=== PATIENT | female | born 1970 | race Caucasian/White ===

== ENCOUNTER → 2018-05-08 | Outpatient (CLI) | payer OTHER ==
--- NOTE | 2018-05-08 15:50 | XR ---
Right hip HISTORY: Right hip pain 2 views of the right hip No comparisons Bone mineralization, joint spaces and alignment are maintained. No fracture or dislocation. IMPRESSION: Normal right hip.
--- NOTE | 2018-05-08 15:52 | XR ---
Lumbosacral spine HISTORY: Pain 5 views of the lumbosacral spine Surgical clips are present in the right upper quadrant. No spondylolysis or spondylolisthesis. Lumbar vertebral bodies show preserved height and bone mineralization. There is multilevel spondylosis. Los s of disc height L5-S1. Sclerosis present in the posterior lower lumbar spine. IMPRESSION: Facet arthropathy. Degenerative disc disease.
== END | disposition home or self-care (01) ==
LOC: RADXRMAIN 12:52
PROVIDERS: ATTEND Family Medicine
DX: M51.36 Other intervertebral disc degeneration, lumbar region (principal); M46.96 Unspecified inflammatory spondylopathy, lumbar region; M25.551 Pain in right hip
CPT/HCPCS: 72110; 73502

== ENCOUNTER → 2020-01-22 | Outpatient (CLI) | payer BC, OTHER ==
[2020-01-22 15:09] VITALS: BP 137/84; PULSE 93; TEMP 98; BMI 47.9
--- NOTE | 2020-01-22 15:34 | P.HPBAR ---
Bariatric H&P - History & Physicial H&P Date: 01/22/20 History & Physicial: Visit/CC: initial visit Patient initial contact: Initial weight: 244.1 kg Initial weight in pounds: 538.15 Height: 5 ft 1 in Initial BMI: 101.7 Last weight: Current weight: 115.212 kg Current weight in pounds: 254.00 Current BMI: 47.9 [place] body weight (based on NIH guidelines): 47.627 kg Excess body weight loss: 65.6% The patient is a 49 year-old F who presents for Bariatric Assessment. DATE OF SERVICE: 01/22/2020 REASON FOR CONSULTATION: Initial bariatric evaluation. HISTORY OF PRESENT ILLNESS: Leonie Wallace is a 49-year-old female who comes with lifelong morbid obesity. She is looking into the sleeve gastrectomy. She had C- section and hysterectomy. She reports heartburn. She denies prior upper endoscopy. No reports of stomach or esophageal cancer in her family. She has diabetes and takes oral medications in the last 6 months. She reports occassional dysphagia. She has family history of obesity. No reports of DVTS. She denies easy bruising or bleeding. She has not had a colonoscopy. She denies smoking and has no past tobacco use. No reports of Crohns disease or ulcerative colitis. Her highest weight is 265 pounds. She has tried weight watchers, Adipex with weight loss and lost 90 pounds all with weight regain. She presents in consultation for weight loss options. At height of 5 feet 1 inches, her ideal body weight is 131 pounds. Her highest weight is 265 pounds, BMI 49.5. She comes in 253 pounds. Her body mass index is 48.0. She is 122 pounds overweight. PAST MEDICAL HISTORY: 1. Morbid obesity due to excess calories 2. Body mass index of 49.5, initial 3. Diabetes type II 4. Hypertensive heart disease 5. Anxiety disorder 6. Psychosis 7. Depressive disorder 8. PTSD PAST SURGICAL HISTORY: 1. section 2. Cholecystectomy 3. Hysterectomy 4. Tonsillectomy 5. Right shoulder surgery HOME MEDICATIONS: Home Medications Medication Instructions Recorded Confirmed Brexpiprazole [Rexulti] 2.5 mg PO DAILY 01/22/20 01/28/20 Celecoxib [CeleBREX] 200 mg PO DAILY 01/22/20 01/28/20 Chlorthalidone 25 mg PO DAILY 01/22/20 01/28/20 Pioglitazone [Actos] 30 mg PO DAILY 01/22/20 01/28/20 Tolterodine Tartrate [Tolterodine 2 mg PO DAILY 01/22/20 01/28/20 Tartrate ER] clonazePAM [KlonoPIN] 0.5 mg PO TID PRN 01/22/20 01/28/20 glipiZIDE [Glucotrol] 10 mg PO BID 01/22/20 01/28/20 lamoTRIgine [LaMICtal] 100 mg PO DAILY 01/22/20 01/28/20 lamoTRIgine [LaMICtal] 200 mg PO HS 01/22/20 01/28/20 traZODone HCL [Desyrel] 100 mg PO DAILY@199901/22/20 01/28/20 Previous Rx's Medication Instructions Recorded Citalopram Hydrobromide [CeleXA] 40 mg PO DAILY #15 tab 04/24/15 ALLERGIES: Allergies Allergy/AdvReac Type Severity Reaction Status Date / Time cephalexin monohydrate Allergy Rapid Verified 01/30/20 07:54 [From Keflex] Heart Rate sulfamethoxazole Allergy Rapid Verified 01/30/20 07:54 [From Bactrim] Heart Rate trimethoprim [From Bactrim] Allergy Rapid Verified 01/30/20 07:54 Heart Rate latex AdvReac Rash/Hives Verified 01/30/20 07:54 some tapes AdvReac Rash/Hives Uncoded 01/30/20 07:54 SOCIAL HISTORY: Past tobacco use. FAMILY HISTORY: No family history of ulcerative colitis disease or Crohn's disease. Family history of morbid obesity. No lupus in the family. No reports of stomach or esophageal cancer. REVIEW OF ORGAN SYSTEMS: CONSTITUTIONAL: At height of 5 feet 1 inches, her ideal body weight is 131 pounds. Her highest weight is 265 pounds, BMI 49.5. She comes in 253 pounds. Her body mass index is 48.0. She is 122 pounds overweight. HEENT: Denies any active troubles with vision or hearing. ENDOCRINE: Has diabetes. No hypothyroidism. CARDIOVASCULAR: No past reports of palpitations or heart attacks or chest pain. Has hypertension. RESPIRATORY: Has daytime somnolence. Denies asthma. GASTROINTESTINAL: Denies any bright red blood per rectum. No diarrhea. No constipation. MUSCULOSKELETAL: Has lower back pain and joint pain. Has osteoarthritis of the knees. NEURO: No headaches. No seizure disorders. PSYCH: Has depression. No suicidal ideation. RHEUMATOLOGIC: No lupus. No rheumatoid arthritis. HEMATOLOGIC: Denies any abnormal bleeding or bruising. No personal history of DVTs. SKIN: No rash. No skin cancer. PHYSICAL EXAM: VITAL SIGNS: Height 5 foot 1 inches, weight 253 pounds. BMI 48.0 Vital Signs Temp 98 F 01/22/20 14:56 Pulse 93 01/22/20 14:56 Resp BP 137/84 01/22/20 14:56 Pulse Ox GENERAL: Well-developed in no acute distress. HEENT: No scleral icterus. Extraocular movements grossly intact. Hears conversational speech. No nasal drainage. NECK: Supple without lymphadenopathy. CHEST: Nonlabored respirations with equal bilateral excursions. CARDIOVASCULAR: Regular rate and regular rhythm. Distal 2+ pulses. ABDOMEN: Obese, soft, nontender, nondistended. MUSCULOSKELETAL: No clubbing, cyanosis. NEURO: No focal or lateralizing signs. Cranial nerves 2 through 12 grossly within normal limits. PSYCH: Appropriate affect. Alert and oriented to person, place and time. SKIN: Good skin turgor. Well perfused. ASSESSMENT: 1. Morbid obesity due to excess calories 2. Body mass index of 49.5, initial 3. Diabetes type II 4. Hypertensive heart disease 5. Anxiety disorder 6. Psychosis 7. Depressive disorder 8. PTSD PLAN: 1. Surgical options including a band, gastric bypass, sleeve gastrectomy were described in detail. Alternatives such as gastric balloon including duodenal switch were described. She is looking into the sleeve gastrectomy 2. The [place] bariatric surgical collaborative data and outcomes calculator were described with surgical options. 3. Recommend a bariatric metabolic panel to evaluate for micro- including macronutrient deficiencies. 4. For history of daytime somnolence, recommend evaluation and treatment for sleep apnea. 5. Dietary surveillance and counseling was reviewed. Increased protein intake over 65 grams daily advised. 6. Will need cardiac risk assessment. 7. Recommend medical risk assessment. 8. Psych assessment per insurance guidelines. 9. Recommend upper endoscopy. 10. Recommend 12-lead EKG. 11. Recommend esophagram 12. Recommend colonoscopy. Thank you for this consultation. Laboratory Last Values WBC 8.6 k/uL (3.8-10.6) 01/22/20 16:14 RBC 4.79 m/uL (3.80-5.40) 01/22/20 16:14 Hgb 13.7 gm/dL (11.4-16.0) 01/22/20 16:14 Hct 42.3 % (34.0-46.0) 01/22/20 16:14 MCV 88.4 fL (80.0-100.0) 01/22/20 16:14 MCH 28.6 pg (25.0-35.0) 01/22/20 16:14 MCHC 32.4 g/dL (31.0-37.0) 01/22/20 16:14 RDW 12.9 % (11.5-15.5) 01/22/20 16:14 Plt Count 282 k/uL (150-450) 01/22/20 16:14 PT 10.5 sec (9.9-11.9) 01/22/20 16:14 INR 0.98 (0.90-1.11) 01/22/20 16:14 APTT 26.6 sec (24.7-29.9) 01/22/20 16:14 Sodium 139 mmol/L (135-145) 01/22/20 16:14 Potassium 4.0 mmol/L (3.5-5.5) 01/22/20 16:14 Chloride 102 mmol/L (96-109) 01/22/20 16:14 Carbon Dioxide 26.5 mmol/L (21.6-31.8) 01/22/20 16:14 Anion Gap 10.50 mmol/L (4.00-12.00) 01/22/20 16:14 BUN 17.0 mg/dL (9.0-27.0) 01/22/20 16:14 Creatinine 1.0 mg/dL (0.6-1.5) 01/22/20 16:14 Est GFR (CKD-EPI)AfAm 75.5 (60.0-200.0) 01/22/20 16:14 Est GFR (CKD-EPI)NonAf 65.2 (60.0-200.0) 01/22/20 16:14 BUN/Creatinine Ratio 17.00 Ratio (12.00-20.00) 01/22/20 16:14 Glucose 106 mg/dL (70-110) 01/22/20 16:[address] Glu mg/dL 226 01/22/20 16:14 Hemoglobin A1c 9.5 % (4.0-6.0) H 01/22/20 16:14 Calcium 9.7 mg/dL (8.7-10.3) 01/22/20 16:14 Phosphorus 3.4 mg/dL (2.4-5.1) 01/22/20 16:14 Magnesium 1.8 mg/dL (1.5-2.4) 01/22/20 16:14 Iron 61 ug/dL (50-170) 01/22/20 16:14 TIBC 329 ug/dL (228-460) 01/22/20 16:14 % Saturation 18.54 (12.00-45.00) 01/22/20 16:14 Ferritin 291.2 ng/mL (10.0-291.0) H 01/22/20 16:14 Total Bilirubin 0.5 mg/dL (0.3-1.2) 01/22/20 16:14 AST 55 U/L (13-35) H 01/22/20 16:14 ALT 51 U/L (8-44) H 01/22/20 16:14 Alkaline Phosphatase 76 U/L (41-126) 01/22/20 16:14 Total Protein 7.0 g/dL (6.2-8.2) 01/22/20 16:14 Albumin 4.30 g/dL (3.80-4.90) 01/22/20 16:14 Globulin 2.7 g/dL (1.6-3.3) 01/22/20 16:14 Albumin/Globulin Ratio 1.59 g/dL (1.60-3.17) L 01/22/20 16:14 Prealbumin 21.0 mg/dL (18.0-42.0) 01/22/20 16:14 Triglycerides 284.0 mg/dL (0.0-149.0) H 01/22/20 16:14 Cholesterol 223 mg/dL (0-200) H 01/22/20 16:14 LDL Cholesterol, Calc 117.2 mg/dL (0.0-131.0) 01/22/20 16:14 VLDL Cholesterol, Calc 56.80 mg/dL (5.00-40.00) H 01/22/20 16:14 HDL Cholesterol 49.0 mg/dL (40.0-60.0) 01/22/20 16:14 Cholesterol/HDL Ratio 4.55 01/22/20 16:14 Vitamin A 51 ug/dL (38-106) 01/22/20 16:14 Vitamin B1 54 ug/L (38-122) 01/22/20 16:14 Vitamin B12 276.0 pg/mL (200.0-944.0) 01/22/20 16:14 Vitamin D 25-Hydroxy 19.7 ng/mL (30.0-100.0) L 01/22/20 16:14 Folate 11.2 ng/mL 01/22/20 16:14 TSH 2.020 uIU/mL (0.350-5.500) 01/22/20 16:14 PTH Intact 22.4 pg/mL (14.0-72.0) 01/22/20 16:14 Copper 1430 ug/L (810-1990) 01/22/20 16:14 Selenium 150 mcg/L (63-160) 01/22/20 16:14 Zinc 56 ug/dL (60-130) L 01/22/20 16:14 EKG EKG PERFORMED 01/22/20 16:14 Vitamin D is low ZInc is low Past Medical History Past Medical History: Diabetes Mellitus, GERD/Reflux, Hypertension, Sleep Apnea/CPAP/BIPAP History of Any Multi-Drug Resistant Organisms: None Reported Past Surgical History: Section, Cholecystectomy, Hysterectomy, Orthopedic Surgery, Tonsillectomy Additional Past Surgical History / Comment(s): right elbow lateral epicondylitis; right shoulder surgery Past Anesthesia/Blood Transfusion Reactions: No Reported Reaction Past Psychological History: Anxiety, Depression, PTSD Smoking Status: Never smoker Past Alcohol Use History: None Reported Additional Past Alcohol Use History / Comment(s): Patient is a lifelong nonsmoker. She denies any medical marijuana, marijuana, street drug use. She drinks alcohol on a rare basis. 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 Past Drug Use History: None Reported - Past Family History Mother Family Medical History: Congestive Heart Failure (CHF), Coronary Artery Disease (CAD), Hypertension, Rheumatoid Arthritis (RA) Additional Family Medical History / Comment(s): Mother is alive at age 70 with a history of diabetes, coronary artery disease status post stent placement, polymyalgia. Father Additional Family Medical History / Comment(s): Father is alive at age 71 with no major medical problems. Brother(s) Additional Family Medical History / Comment(s): Patient has a brother age 48 and a second brother age 40 with no major medical problems. Patient has 1 sister with no major medical problems. She has one son and one daughter with no major medical problems. Surgical - Exam Vital Signs Temp Pulse BP 98 F 93 137/84 01/22/20 14:56 01/22/20 14:56 01/22/20 14:56 Results - Labs 01/22/20 16:14 01/22/20 16:14 Bariatric Checklist Checklist: Plan: Checklist: EGD: 1. Hiatal hernia: 2. H. Pylori: HgbA1c: Vitamin D: Smoking: Never smoker Primary care physician referral: Dr Jacob Psychiatry clearance: Cardiology clearance: Sleep study: Diet journal: VTE risk score: VTE risk level: Rehab needs at discharge:
[2020-01-22 16:44] LABS: HCT 42.3 % (34.0-46.0); HGB 13.7 gm/dL (11.4-16.0); MCH 28.6 pg (25.0-35.0); MCHC 32.4 g/dL (31.0-37.0); MCV 88.4 fL (80.0-100.0); Platelet Count 282 k/uL (150-450); RBC 4.79 m/uL (3.80-5.40); RDW 12.9 % (11.5-15.5); WBC 8.6 k/uL (3.8-10.6)
[2020-01-23 00:47] LABS: Hemoglobin A1C 9.5 % (4.0-6.0)
[2020-01-23 01:48] LABS: INR 0.98 (0.90-1.11); Partial Thromboplastin Time 26.6 sec (24.7-29.9); Prothrombin Time 10.5 sec (9.9-11.9)
[2020-01-23 02:12] LABS: % Iron Saturation 18.54 (12.00-45.00); African American GFR (CKD) 75.5 (60.0-200.0); Albumin 4.3 g/dL (3.80-4.90); Albumin/Globulin Ratio 1.59 (1.60-3.17); Anion Gap 10.5 mmol/L (4.00-12.00); Calcium 9.7 mg/dL (8.7-10.3); Carbon Dioxide 26.5 mmol/L (21.6-31.8); Chol/HDL Ratio 4.55; Globulin 2.7 g/dL (1.6-3.3); LDL Cholesterol,Calculated 117.2 mg/dL (0.0-131.0); Magnesium 1.8 mg/dL (1.5-2.4); Non-African American GFR(CKD) 65.2 (60.0-200.0); Phosphorus 3.4 mg/dL (2.4-5.1); Total Bilirubin 0.5 mg/dL (0.3-1.2); VLDL Calculation 56.8 mg/dL (5.00-40.00)
[2020-01-23 02:20] LABS: Ferritin 291.2 ng/mL (10.0-291.0)
[2020-01-23 02:51] LABS: Folate, Serum 11.2 ng/mL
[2020-01-23 11:30] LABS: Zinc, Serum 56 ug/dL (60-130)
[2020-01-24 07:28] LABS: Vit B1(Thiamine) 54 ug/L (38-122)
[2020-01-24 07:33] LABS: Vitamin A 51 ug/dL (38-106)
[2020-01-29 19:17] LABS: Selenium 150 mcg/L (63-160)
== END | disposition home or self-care (01) ==
LOC: BARWHC3 14:38
PROVIDERS: ATTEND Surgery Plastic and Reconstructive Surgery
DX: E66.01 Morbid (severe) obesity due to excess calories (principal); E11.9 Type 2 diabetes mellitus without complications; I11.9 Hypertensive heart disease without heart failure; F29 Unspecified psychosis not due to a substance or known physiological condition; F41.8 Other specified anxiety disorders; F43.10 Post-traumatic stress disorder, unspecified; Z87.891 Personal history of nicotine dependence; Z68.42 Body mass index [BMI] 45.0-49.9, adult; Z79.1 Long term (current) use of non-steroidal anti-inflammatories (NSAID); Z79.899 Other long term (current) drug therapy; Z88.8 Allergy status to other drugs, medicaments and biological substances; Z91.040 Latex allergy status; Z88.1 Allergy status to other antibiotic agents; Z88.2 Allergy status to sulfonamides; E89.1 Postprocedural hypoinsulinemia; D50.8 Other iron deficiency anemias; K90.89 Other intestinal malabsorption; E55.9 Vitamin D deficiency, unspecified; K74.1 Hepatic sclerosis; N19 Unspecified kidney failure; K50.90 Crohn's disease, unspecified, without complications
CPT/HCPCS: 80053; 80061; 82306; 82525; 82607; 82728; 82746; 83036; 83540; 83550; 83735; 83970; 84100; 84134; 84255; 84425; 84443; 84590; 84630; 85027; 85610; 85730; 93005; 99211

== ENCOUNTER 2020-01-30 07:39 | Day surgery (SDC) | payer BC, OTHER ==
[2020-01-28 15:01] VITALS: BMI 47.9
[~2020-01-30 07:39] MED LIST: DEXAMETHASONE SOD PHOSPHATE 4 MG/ML 1 ML VIAL IV ONE; HYDROmorphone 0.5 MG/0.5 ML SYRINGE IVP PRN; LACTATED RINGERS 1,000 ML IV SCH; LIDOCAINE 1% (10MG/ML) FOR IV START INTRADERMA PRN; ONDANSETRON 4 MG/2 ML VIAL IVP ONE; SCOPOLAMINE 1.5MG/72HR PATCH TRANSDERM ONE
--- NOTE | 2020-01-30 07:59 | P.GSHP ---
History of Present Illness H&P Date: 01/30/20 CHIEF COMPLAINT: GERD and colon screen HISTORY OF PRESENT ILLNESS: The patient is a 49-year-old female who presents with gastroesophageal reflux disease and need for colon screen. Upper and lower endoscopy were offered for further evaluation and management. PAST MEDICAL HISTORY: Please see list. PAST SURGICAL HISTORY: Please see list. MEDICATIONS: Please see list. ALLERGIES: Please see list. SOCIAL HISTORY: No illicit drug use FAMILY HISTORY: No reports of Crohn disease or ulcerative colitis. REVIEW OF ORGAN SYSTEMS: CONSTITUTIONAL: No reports of fevers or chills. GI: Denies any blood in stools or constipation. PHYSICAL EXAM: VITAL SIGNS: Stable GENERAL: Well-developed pleasant in no acute distress. HEENT: No scleral icterus. Extraocular movements grossly intact. Moist buccal mucosa. NECK: Supple without lymphadenopathy. CHEST: Unlabored respirations. Equal bilateral excursions. CARDIOVASCULAR: Regular rate and rhythm. Distal 2+ pulses. ABDOMEN: Soft, nondistended. MUSCULOSKELETAL: No clubbing, cyanosis, or edema. ASSESSMENT: 1. Gastroesophageal reflux disease 2. Colon screen. PLAN: 1. Recommend proceeding with an upper and lower endoscopy Past Medical History Past Medical History: Diabetes Mellitus, GERD/Reflux, Hypertension, Sleep Apnea/CPAP/BIPAP Additional Past Medical History / Comment(s): NO CPAP USED History of Any Multi-Drug Resistant Organisms: None Reported Past Surgical History: Section, Cholecystectomy, Hysterectomy, Orthopedic Surgery, Tonsillectomy Additional Past Surgical History / Comment(s): right elbow lateral epicondylitis; right shoulder surgery Past Anesthesia/Blood Transfusion Reactions: No Reported Reaction Smoking Status: Never smoker - Past Family History Mother Family Medical History: Congestive Heart Failure (CHF), Coronary Artery Disease (CAD), Hypertension, Rheumatoid Arthritis (RA) Additional Family Medical History / Comment(s): Mother is alive at age 70 with a history of diabetes, coronary artery disease status post stent placement, polymyalgia. Father Family Medical History: No Reported History Additional Family Medical History / Comment(s): Father is alive at age 71 with no major medical problems. Brother(s) Family Medical History: No Reported History Additional Family Medical History / Comment(s): Patient has a brother age 48 and a second brother age 40 with no major medical problems. Patient has 1 sister with no major medical problems. She has one son and one daughter with no major medical problems. Medications and Allergies Home Medications Medication Instructions Recorded Confirmed Type Citalopram Hydrobromide [CeleXA] 40 mg PO DAILY #15 tab 04/24/15 01/28/20 Rx Brexpiprazole [Rexulti] 2.5 mg PO DAILY 01/22/20 01/28/20 History Celecoxib [CeleBREX] 200 mg PO DAILY 01/22/20 01/28/20 History Chlorthalidone 25 mg PO DAILY 01/22/20 01/28/20 History Pioglitazone [Actos] 30 mg PO DAILY 01/22/20 01/28/20 History Tolterodine Tartrate [Tolterodine 2 mg PO DAILY 01/22/20 01/28/20 History Tartrate ER] clonazePAM [KlonoPIN] 0.5 mg PO TID PRN 01/22/20 01/28/20 History glipiZIDE [Glucotrol] 10 mg PO BID 01/22/20 01/28/20 History lamoTRIgine [LaMICtal] 100 mg PO DAILY 01/22/20 01/28/20 History lamoTRIgine [LaMICtal] 200 mg PO HS 01/22/20 01/28/20 History traZODone HCL [Desyrel] 100 mg PO DAILY@2000 01/22/20 01/28/20 History Allergies Allergy/AdvReac Type Severity Reaction Status Date / Time cephalexin monohydrate Allergy Rapid Verified 01/30/20 07:54 [From Keflex] Heart Rate sulfamethoxazole Allergy Rapid Verified 01/30/20 07:54 [From Bactrim] Heart Rate trimethoprim [From Bactrim] Allergy Rapid Verified 01/30/20 07:54 Heart Rate latex AdvReac Rash/Hives Verified 01/30/20 07:54 some tapes AdvReac Rash/Hives Uncoded 01/30/20 07:54
[2020-01-30 08:15] LABS: Glucose,Whole Blood 183 mg/dL (75-99)
[2020-01-30] MEDS ORDERED: PROPOFOL 10 MG/ML 20 ML VIAL IV ONE (08:30)
[2020-01-30] MEDS ORDERED: LIDOCAINE 1% INJ 10MG/ML (20 ML MDV) ONE (08:30)
--- NOTE | 2020-01-30 08:41 | P.PCN ---
Date of Procedure: 01/30/20 Description of Procedure: PREOPERATIVE DIAGNOSIS: Gastroesophageal reflux disease. Morbid obesity. POSTOPERATIVE DIAGNOSIS: Morbid obesity. Gastritis. Gastroesophageal reflux disease. OPERATION: Esophagogastroduodenoscopy with biopsies along antrum. SURGEON: Jaja Ga MD ANESTHESIA: MAC. INDICATIONS: The patient is a 49-year-old female who presents with a history of reflux disease. Benefits and risks of the procedure were described. Informed consent was obtained. DESCRIPTION: The patient was brought into the endoscopy suite and laid in the left lateral decubitus position. An Olympus gastroscope was passed along the posterior oropharynx down to the distal esophagus where the squamocolumnar junction was encountered at 35 cm from the incisors. The stomach was entered and no bile reflux was found. Additional findings are listed below. Biopsies with cold forceps were obtained of the antrum. The first through third portion of the duodenum was examined and unremarkable. Retroflexion of the scope confirmed Hill grade 2 lower esophageal valve. The squamocolumnar junction demonstrated LA grade A erosive esophagitis. The stomach was desufflated. The patient tolerated the procedure well. FINDINGS: Squamocolumnar junction 35 cm from the incisors. Diaphragmatic hiatus at 35 cm. Hill grade 2 lower esophageal valve. LA grade A erosive esophagitis. No active duodenitis. Chronic gastritis RECOMMENDATIONS: Upper endoscopy as needed.
[2020-01-30 08:42] VITALS: TEMP 97.1
[2020-01-30 08:58] VITALS: PULSE 79; RESP 18
--- NOTE | 2020-01-30 09:06 | P.PCN ---
Date of Procedure: 01/30/20 Description of Procedure: PREOPERATIVE DIAGNOSIS: Colonoscopy screening, initial POSTOPERATIVE DIAGNOSIS: Colonoscopy screening, initial Diverticulosis, scattered. OPERATION: Colonoscopy to the cecum, ileocecal valve and appendiceal orifice. SURGEON: Jaja Ga MD. ANESTHESIA: MAC. INDICATIONS: The patient is a 49-year-old female who presents for her first colonoscopy screening. Benefits and risks were described and informed consent was obtained. DESCRIPTION OF PROCEDURE: The patient had undergone Suprep. She had been brought into the operating room and laid in the left lateral decubitus position. After adequate intravenous sedation, the rectum was examined with 2% lidocaine jelly. External hemorrhoids were encountered. The rectal tone was within normal limits. No lesions were palpated in the rectal vault. An Olympus colonoscope was advanced until the cecum, ileocecal valve and appendiceal orifice were clearly viewed. The prep was fair. No scattered diverticulosis was encountered. No colonic polyps were found. No evidence of focal colitis was found. Retroflexion of the scope demonstrated grade 2 internal hemorrhoids without active bleeding or inflammation. The colon was desufflated. The patient had tolerated the procedure well. Withdrawal time was over 6 minutes. FINDINGS: Aronchick preparation quality scale3 (1-5) Internal hemorrhoids, grade 2 External prolapsed hemorrhoids, grade 3 No arteriovenous malformations. No large adenomatous polyps. No focal colitis. RECOMMENDATIONS: Lower endoscopy in 5 years, 2024 Plan - Discharge Summary Discharge Rx Participant: No New Discharge Prescriptions: Continue Citalopram Hydrobromide [CeleXA] 40 mg PO DAILY #15 tab Tolterodine Tartrate [Tolterodine Tartrate ER] 2 mg PO DAILY Celecoxib [CeleBREX] 200 mg PO DAILY Pioglitazone [Actos] 30 mg PO DAILY Chlorthalidone 25 mg PO DAILY glipiZIDE [Glucotrol] 10 mg PO BID clonazePAM [KlonoPIN] 0.5 mg PO TID PRN PRN Reason: Anxiety traZODone HCL [Desyrel] 100 mg PO DAILY@1999 lamoTRIgine [LaMICtal] 100 mg PO DAILY lamoTRIgine [LaMICtal] 200 mg PO HS Brexpiprazole [Rexulti] 2.5 mg PO DAILY Discharge Medication List Citalopram Hydrobromide [CeleXA] 40 mg PO DAILY #15 tab 04/24/15 [Rx] Brexpiprazole [Rexulti] 2.5 mg PO DAILY 01/22/20 [History] Celecoxib [CeleBREX] 200 mg PO DAILY 01/22/20 [History] Chlorthalidone 25 mg PO DAILY 01/22/20 [History] Pioglitazone [Actos] 30 mg PO DAILY 01/22/20 [History] Tolterodine Tartrate [Tolterodine Tartrate ER] 2 mg PO DAILY 01/22/20 [History] clonazePAM [KlonoPIN] 0.5 mg PO TID PRN 01/22/20 [History] glipiZIDE [Glucotrol] 10 mg PO BID 01/22/20 [History] lamoTRIgine [LaMICtal] 100 mg PO DAILY 01/22/20 [History] lamoTRIgine [LaMICtal] 200 mg PO HS 01/22/20 [History] traZODone HCL [Desyrel] 100 mg PO DAILY@199901/22/20 [History] [facility]Ref[facility] [facility] [place] [place] [facility] [place] [facility] Patient Instructions/Handouts: *[facility] - (Anesthesia) Endoscopy Discharge Instructions, Gastritis (DC), Constipation (DC), Hemorrhoids (DC), Diet for Stomach Ulcers and Gastritis (ED) Activity/Diet/Wound Care/Special Instructions: Repeat colonoscopy in 5 years, 2024 Discharge Disposition: HOME SELF-CARE
[2020-01-30 09:21] VITALS: BP 121/77
--- NOTE | 2020-02-03 07:29 | CDI ---
Date: 02.03.2020 CDS/Card Lacer Name: Ginny Olguin Phone: If any questions, call [facility] [employer] Network/Telecom Engineer at [phone] Patient Name: Leonie Wallace Admit Date 01.30.20 Discharge Date: 01.30.20 ATTENTION: The [facility] Coding Staff appreciate your assistance in clarifying documentation. Please respond to the clarification below the line at the bottom and electronically sign. The [facility] Coding staff will review the response and follow-up if needed. Please note: Queries are made part of the Legal Health Record. If you have any questions, please contact the Network/Telecom Engineer. Dear Dr. Ga In order to code to the greatest specificity and for the greatest reimbursement I need the following information: In your Colonoscopy documentation you have documented under postop dx diverticulosis, scattered, but in the description of procedure you have documented no scattered diverticulosis encountered. Please clarify whether any diverticulosis was found: __Yes _x_No Thank you for your kind consideration. see amended report KM 02/03/20 @ 0749 MTDD
== END 2020-01-30 09:59 | disposition home or self-care (01) ==
LOC: ORWHC2ENDO 07:39
PROVIDERS: ATTEND Surgery Plastic and Reconstructive Surgery
DX: Z12.11 Encounter for screening for malignant neoplasm of colon (principal); K64.4 Residual hemorrhoidal skin tags; K64.1 Second degree hemorrhoids; K29.50 Unspecified chronic gastritis without bleeding; K21.00 Gastro-esophageal reflux disease with esophagitis, without bleeding; K22.10 Ulcer of esophagus without bleeding; K44.9 Diaphragmatic hernia without obstruction or gangrene; E11.9 Type 2 diabetes mellitus without complications; E66.01 Morbid (severe) obesity due to excess calories; I10 Essential (primary) hypertension; G47.30 Sleep apnea, unspecified; F32.9 Major depressive disorder, single episode, unspecified; F41.9 Anxiety disorder, unspecified; Z91.040 Latex allergy status; Z88.1 Allergy status to other antibiotic agents; Z88.2 Allergy status to sulfonamides; Z68.42 Body mass index [BMI] 45.0-49.9, adult; Z98.890 Other specified postprocedural states; Z90.49 Acquired absence of other specified parts of digestive tract; Z90.710 Acquired absence of both cervix and uterus; Z90.89 Acquired absence of other organs; Z87.39 Personal history of other diseases of the musculoskeletal system and connective tissue; Z79.899 Other long term (current) drug therapy; Z79.1 Long term (current) use of non-steroidal anti-inflammatories (NSAID); Z79.84 Long term (current) use of oral hypoglycemic drugs; Z91.09 Other allergy status, other than to drugs and biological substances; Z82.49 Family history of ischemic heart disease and other diseases of the circulatory system; Z82.61 Family history of arthritis; Z83.3 Family history of diabetes mellitus; Z82.69 Family history of other diseases of the musculoskeletal system and connective tissue
CPT/HCPCS: 88305; 43239; J2405; J2001; J2704; G0121; 45378

== ENCOUNTER → 2020-04-06 | Outpatient (CLI) | payer BC, OTHER ==
[2020-04-06 13:54] VITALS: BMI 49.2
== END | disposition home or self-care (01) ==
LOC: BARWHC3 08:38
PROVIDERS: ATTEND Surgery Plastic and Reconstructive Surgery
DX: E66.01 Morbid (severe) obesity due to excess calories (principal); Z71.3 Dietary counseling and surveillance
CPT/HCPCS: 97804

== ENCOUNTER → 2020-04-08 | Outpatient (CLI) | payer BC, OTHER ==
[2020-04-08 14:29] VITALS: BP 125/74; PULSE 89; RESP 18; TEMP 98.1; BMI 50.2
--- NOTE | 2020-04-08 14:54 | P.PN ---
Subjective Progress Note Date: 04/08/20 DATE OF SERVICE: 04/08/2020 CHIEF COMPLAINT: Morbid obesity HISTORY OF PRESENT ILLNESS: Leonie Wallace is a 49-year-old female who comes with lifelong morbid obesity. She is looking into the sleeve gastrectomy. As a results of her morbid obesity, she has developed diabetes type II and hypertensive heart disease. She has completed an upper and lower endoscopy. She is enrolled in medical supervised weight loss and comes in with weight gain. She reports her blood sugar glucose is 180 in the morning. At height of 5 feet 1 inches, her ideal body weight is 131 pounds. Her highest weight is 265 pounds, BMI 49.5. She comes in 265 pounds from 253 pounds, 3 months ago. She has gained 12 pounds in 3 months. Her body mass index is 50.3. She is 134 pounds overweight. PAST MEDICAL HISTORY: 1. Morbid obesity due to excess calories 2. Body mass index of 49.5, initial 3. Diabetes type II 4. Hypertensive heart disease 5. Anxiety disorder 6. Psychosis 7. Depressive disorder 8. PTSD PAST SURGICAL HISTORY: 1. section 2. Cholecystectomy 3. Hysterectomy 4. Tonsillectomy 5. Right shoulder surgery HOME MEDICATIONS: Home Medications Medication Instructions Recorded Confirmed Brexpiprazole [Rexulti] 2.5 mg PO DAILY 01/22/20 01/28/20 Celecoxib [CeleBREX] 200 mg PO DAILY 01/22/20 01/28/20 Chlorthalidone 25 mg PO DAILY 01/22/20 01/28/20 Pioglitazone [Actos] 30 mg PO DAILY 01/22/20 01/28/20 Tolterodine Tartrate [Tolterodine 2 mg PO DAILY 01/22/20 01/28/20 Tartrate ER] clonazePAM [KlonoPIN] 0.5 mg PO TID PRN 01/22/20 01/28/20 glipiZIDE [Glucotrol] 10 mg PO BID 01/22/20 01/28/20 lamoTRIgine [LaMICtal] 100 mg PO DAILY 01/22/20 01/28/20 lamoTRIgine [LaMICtal] 200 mg PO HS 01/22/20 01/28/20 traZODone HCL [Desyrel] 100 mg PO DAILY@2000 10/28/20 11/03/20 Previous Rx's Medication Instructions Recorded Citalopram Hydrobromide [CeleXA] 40 mg PO DAILY #15 tab 04/24/15 ALLERGIES: Allergies Allergy/AdvReac Type Severity Reaction Status Date / Time cephalexin monohydrate Allergy Rapid Verified 01/30/20 07:54 [From Keflex] Heart Rate sulfamethoxazole Allergy Rapid Verified 01/30/20 07:54 [From Bactrim] Heart Rate trimethoprim [From Bactrim] Allergy Rapid Verified 01/30/20 07:54 Heart Rate latex AdvReac Rash/Hives Verified 01/30/20 07:54 some tapes AdvReac Rash/Hives Uncoded 01/30/20 07:54 SOCIAL HISTORY: Past tobacco use. FAMILY HISTORY: No family history of ulcerative colitis disease or Crohn's disease. Family history of morbid obesity. No lupus in the family. No reports of stomach or esophageal cancer. REVIEW OF ORGAN SYSTEMS: CONSTITUTIONAL: At height of 5 feet 1 inches, her ideal body weight is 131 pounds. Her highest weight is 265 pounds, BMI 49.5. HEENT: Denies any active troubles with vision or hearing. ENDOCRINE: Has diabetes. No hypothyroidism. CARDIOVASCULAR: No past reports of palpitations or heart attacks or chest pain. Has hypertension. RESPIRATORY: Has daytime somnolence. Denies asthma. GASTROINTESTINAL: Denies any bright red blood per rectum. No diarrhea. No constipation. MUSCULOSKELETAL: Has lower back pain and joint pain. Has osteoarthritis of the knees. NEURO: No headaches. No seizure disorders. PSYCH: Has depression. No suicidal ideation. RHEUMATOLOGIC: No lupus. No rheumatoid arthritis. HEMATOLOGIC: Denies any abnormal bleeding or bruising. No personal history of DVTs. SKIN: No rash. No skin cancer. PHYSICAL EXAM: VITAL SIGNS: Height 5 foot 1 inches, weight 265 pounds. BMI 50.3 Vital Signs Temp 98.1 F 04/08/20 14:23 Pulse 89 04/08/20 14:23 Resp 18 04/08/20 14:23 BP 125/74 04/08/20 14:23 Pulse Ox GENERAL: Well-developed in no acute distress. HEENT: No scleral icterus. Extraocular movements grossly intact. Hears conversational speech. No nasal drainage. NECK: Supple without lymphadenopathy. CHEST: Nonlabored respirations with equal bilateral excursions. CARDIOVASCULAR: Regular rate and regular rhythm. Distal 2+ pulses. ABDOMEN: Obese, soft, nontender, nondistended. MUSCULOSKELETAL: No clubbing, cyanosis. NEURO: No focal or lateralizing signs. Cranial nerves 2 through 12 grossly within normal limits. PSYCH: Appropriate affect. Alert and oriented to person, place and time. SKIN: Good skin turgor. Well perfused. LABS: Hgb A1C elevated 9.5%, AST and ALT is elevated. Cholesterol is elevated including triglycerides. Vitamin D is low. Zinc is low. EKG: Normal sinus rhythm. EGD FINDINGS: Squamocolumnar junction 35 cm from the incisors. Diaphragmatic hiatus at 35 cm. Hill grade 2 lower esophageal valve. LA grade A erosive esophagitis. No active duodenitis. Chronic gastritis COLONOSCOPY FINDINGS: Aronchick preparation quality scale3 (1-5) Internal hemorrhoids, grade 2 External prolapsed hemorrhoids, grade 3 No arteriovenous malformations. No large adenomatous polyps. No focal colitis. Final Pathologic Diagnosis GASTRIC ANTRUM, BIOPSY: Mild chronic gastritis. Helicobacter pylori organisms are not identified on routine H+E sections. ASSESSMENT: 1. Morbid obesity due to excess calories 2. Body mass index of 49.5, initial 3. Diabetes type II, poorly controlled 4. Hypertensive heart disease 5. Anxiety disorder 6. Psychosis 7. Depressive disorder 8. PTSD 9. Elevated liver enxymes 10. Hypercholesterolemia 11. Hypertriglyceridemia 12. Vitamin D deficiency 13. ZInc deficiency PLAN: 1. She has poorly controlled diabetes and will need to improve her Hgb A1c less than 9.0. 2. Correction of vitamin D deficiency. Vitamin D 50,000 units weekly prescribed. 3. Zinc 50 mg daily advised. 4. She is pending psych assessment. 5. Recommend 2 week protein diet to address hyperglycemia and hyperlipidemia Objective - Vital Signs Vital signs: Vital Signs Temp 98.1 F 04/08/20 14:23 Pulse 89 04/08/20 14:23 Resp 18 04/08/20 14:23 BP 125/74 04/08/20 14:23 Pulse Ox Intake & Output 04/07/20 04/08/20 04/08/20 18:59 06:59 18:59 Weight 120.656 kg
== END | disposition home or self-care (01) ==
LOC: BARWHC3 13:54
PROVIDERS: ATTEND Surgery Plastic and Reconstructive Surgery
DX: E66.01 Morbid (severe) obesity due to excess calories (principal); E11.9 Type 2 diabetes mellitus without complications; I11.9 Hypertensive heart disease without heart failure; F41.9 Anxiety disorder, unspecified; F32.9 Major depressive disorder, single episode, unspecified; F29 Unspecified psychosis not due to a substance or known physiological condition; F43.10 Post-traumatic stress disorder, unspecified; E78.00 Pure hypercholesterolemia, unspecified; E78.1 Pure hyperglyceridemia; E55.9 Vitamin D deficiency, unspecified; E60 Dietary zinc deficiency; R74.8 Abnormal levels of other serum enzymes; Z68.42 Body mass index [BMI] 45.0-49.9, adult; Z88.8 Allergy status to other drugs, medicaments and biological substances; Z88.2 Allergy status to sulfonamides; Z88.1 Allergy status to other antibiotic agents; Z91.048 Other nonmedicinal substance allergy status; Z79.891 Long term (current) use of opiate analgesic; Z79.899 Other long term (current) drug therapy; Z79.84 Long term (current) use of oral hypoglycemic drugs; Z90.49 Acquired absence of other specified parts of digestive tract; Z90.710 Acquired absence of both cervix and uterus
CPT/HCPCS: 99211

== ENCOUNTER → 2020-05-06 | Outpatient (CLI) | payer BC, OTHER ==
[2020-05-06 15:08] VITALS: BP 114/72; PULSE 82; RESP 18; TEMP 98.3; BMI 50.6
--- NOTE | 2020-05-06 15:15 | P.PN ---
Subjective Progress Note Date: 05/06/20 DATE OF SERVICE: 05/06/2020 CHIEF COMPLAINT: Morbid obesity HISTORY OF PRESENT ILLNESS: Leonie Wallace is a 49-year-old female with lifelong morbid obesity. As a results of her morbid obesity, she has developed diabetes type II and hypertensive heart disease. She was recently diagnosed with diabetes type II with Hgb A1c high at 9.5%. Now she reports improvement of her results down to 8.3%. She has completed psychological assessment. She is looking into the sleeve gastrectomy. At height of 5 feet 1 inches, her ideal body weight is 131 pounds. She comes in at her highest weight is 267 pounds, BMI 50.6 from 265 pounds, 1 month ago. She has gained 2 pounds in 1 month. Her body mass index is 50.6. She is 136 pounds overweight. PAST MEDICAL HISTORY: 1. Morbid obesity due to excess calories 2. Body mass index of 49.5, initial 3. Diabetes type II 4. Hypertensive heart disease 5. Anxiety disorder 6. Psychosis 7. Depressive disorder 8. PTSD PAST SURGICAL HISTORY: 1. section 2. Cholecystectomy 3. Hysterectomy 4. Tonsillectomy 5. Right shoulder surgery HOME MEDICATIONS: Home Medications Medication Instructions Recorded Confirmed Brexpiprazole [Rexulti] 2.5 mg PO DAILY 01/22/20 05/06/20 Celecoxib [CeleBREX] 200 mg PO DAILY 01/22/20 05/06/20 Chlorthalidone 25 mg PO DAILY 01/22/20 05/06/20 Pioglitazone [Actos] 30 mg PO DAILY 01/22/20 05/06/20 Tolterodine Tartrate [Tolterodine 2 mg PO DAILY 01/22/20 05/06/20 Tartrate ER] clonazePAM [KlonoPIN] 0.5 mg PO TID PRN 01/22/20 05/06/20 glipiZIDE [Glucotrol] 10 mg PO BID 01/22/20 05/06/20 lamoTRIgine [LaMICtal] 100 mg PO DAILY 01/22/20 05/06/20 lamoTRIgine [LaMICtal] 200 mg PO HS 01/22/20 05/06/20 traZODone HCL [Desyrel] 100 mg PO DAILY@2000 01/22/20 05/06/20 Ergocalciferol (Vitamin D2) 1,250 mcg PO WEEKLY 04/08/20 05/06/20 [Vitamin D2 (50,000 units)] Previous Rx's Medication Instructions Recorded Citalopram Hydrobromide [CeleXA] 40 mg PO DAILY #15 tab 04/24/15 Ergocalciferol [Vitamin D2 50,000 unit PO Q7D #30 cap 04/08/20 (DRISDOL)] ALLERGIES: Allergies Allergy/AdvReac Type Severity Reaction Status Date / Time cephalexin monohydrate Allergy Rapid Verified 01/30/20 07:54 [From Keflex] Heart Rate sulfamethoxazole Allergy Rapid Verified 01/30/20 07:54 [From Bactrim] Heart Rate trimethoprim [From Bactrim] Allergy Rapid Verified 01/30/20 07:54 Heart Rate latex AdvReac Rash/Hives Verified 01/30/20 07:54 some tapes AdvReac Rash/Hives Uncoded 01/30/20 07:54 SOCIAL HISTORY: Past tobacco use. FAMILY HISTORY: No family history of ulcerative colitis disease or Crohn's disease. Family history of morbid obesity. No lupus in the family. No reports of stomach or esophageal cancer. REVIEW OF ORGAN SYSTEMS: CONSTITUTIONAL: At height of 5 feet 1 inches, her ideal body weight is 131 pounds. Her highest weight is 267 pounds, BMI 50.6 HEENT: Denies any active troubles with vision or hearing. ENDOCRINE: Has diabetes mellitus type 2 non-insulin dependent. No hypothyroidism. CARDIOVASCULAR: No past reports of palpitations or heart attacks or chest pain. Has hypertension. RESPIRATORY: Has daytime somnolence. Denies asthma. GASTROINTESTINAL: Denies any bright red blood per rectum. No diarrhea. No constipation. MUSCULOSKELETAL: Has lower back pain and joint pain. Has osteoarthritis of the knees. NEURO: No headaches. No seizure disorders. PSYCH: Has depression. No suicidal ideation. RHEUMATOLOGIC: No lupus. No rheumatoid arthritis. HEMATOLOGIC: Denies any abnormal bleeding or bruising. No personal history of DVTs. SKIN: No rash. No skin cancer. PHYSICAL EXAM: VITAL SIGNS: Height 5 foot 1 inches, weight 265 pounds. BMI 50.3 Vital Signs Temp 98.1 F 04/08/20 14:23 Pulse 89 04/08/20 14:23 Resp 18 04/08/20 14:23 BP 125/74 04/08/20 14:23 Pulse Ox GENERAL: Well-developed in no acute distress. HEENT: No scleral icterus. Extraocular movements grossly intact. Hears conversational speech. No nasal drainage. NECK: Supple without lymphadenopathy. CHEST: Nonlabored respirations with equal bilateral excursions. CARDIOVASCULAR: Regular rate and regular rhythm. Distal 2+ pulses. ABDOMEN: Obese, soft, nontender, nondistended. MUSCULOSKELETAL: No clubbing, cyanosis. NEURO: No focal or lateralizing signs. Cranial nerves 2 through 12 grossly within normal limits. PSYCH: Appropriate affect. Alert and oriented to person, place and time. SKIN: Good skin turgor. Well perfused. LABS: Reviewed. Hgb A1c down to 8.5%. ASSESSMENT: 1. Morbid obesity due to excess calories 2. Body mass index of 50.6 3. Diabetes type II, poorly controlled 4. Hypertensive heart disease 5. Anxiety disorder 6. Psychosis 7. Depressive disorder 8. PTSD 9. Elevated liver enxymes 10. Hypercholesterolemia 11. Hypertriglyceridemia 12. Vitamin D deficiency 13. ZInc deficiency 14. Dietary surveillance and counseling. PLAN: 1. Bariatric options between a sleeve, band and a Sandra-en-Y gastric bypass were reviewed in detail. The patient elected for a sleeve gastrectomy. Robotic assisted approach described. 2. The [place] [facility] Data was also reviewed with benefits and risks as described. 3. An 8 page second-generation bariatric consent form was reviewed in detail including potential of bleeding, infection, leaks, adequate weight loss, nutritional deficiencies which the patient demonstrated understanding of the risks. 4. A 2 week high-protein low caloric 800 kcal diet described to address hepatomegaly. 5. Preoperative labs including complete metabolic panel and CBC with type and screen recommended. 6. DVT prophylaxis 7. Antibiotic prophylaxis. 8. Inpatient hospitalization anticipated for more than 2 nights. 9. All questions and concerns were addressed with the patient. 10. She is at elevated risk for perioperative complications due to BMI over 50 with diabetes type II poorly controlled. Low blood sugars reviewed during her 2 week low carb high protein diet addressed. Objective - Vital Signs Vital signs: Vital Signs Temp 98.3 F 05/06/20 15:03 Pulse 82 05/06/20 15:03 Resp 18 05/06/20 15:03 BP 114/72 05/06/20 15:03 Pulse Ox Intake & Output 05/05/20 05/06/20 05/06/20 18:59 06:59 18:59 Weight 121.563 kg
== END | disposition home or self-care (01) ==
LOC: BARWHC3 14:22
PROVIDERS: ATTEND Surgery Plastic and Reconstructive Surgery
DX: E66.01 Morbid (severe) obesity due to excess calories (principal); Z68.43 Body mass index [BMI] 50.0-59.9, adult; E11.9 Type 2 diabetes mellitus without complications; I11.9 Hypertensive heart disease without heart failure; F41.9 Anxiety disorder, unspecified; F32.9 Major depressive disorder, single episode, unspecified; F29 Unspecified psychosis not due to a substance or known physiological condition; F43.10 Post-traumatic stress disorder, unspecified; E78.00 Pure hypercholesterolemia, unspecified; E78.1 Pure hyperglyceridemia; E55.9 Vitamin D deficiency, unspecified; Z71.3 Dietary counseling and surveillance; E60 Dietary zinc deficiency; R79.89 Other specified abnormal findings of blood chemistry; Z88.8 Allergy status to other drugs, medicaments and biological substances; Z88.1 Allergy status to other antibiotic agents; Z88.2 Allergy status to sulfonamides; Z79.84 Long term (current) use of oral hypoglycemic drugs; Z79.891 Long term (current) use of opiate analgesic; Z79.899 Other long term (current) drug therapy; Z79.1 Long term (current) use of non-steroidal anti-inflammatories (NSAID); Z90.49 Acquired absence of other specified parts of digestive tract; Z90.710 Acquired absence of both cervix and uterus
CPT/HCPCS: 99211

== ENCOUNTER → 2020-05-11 | Outpatient (CLI) | payer BC, OTHER ==
[2020-05-11 14:41] LABS: Basophils # (A) 0.1 k/uL (0-0.2); Basophils % (A) 1 %; Eosinophils # (A) 0.1 k/uL (0-0.7); Eosinophils % (A) 2 %; HCT 42.9 % (34.0-46.0); HGB 13.8 gm/dL (11.4-16.0); Lymphocytes # (A) 1.9 k/uL (1.0-4.8); Lymphocytes % (A) 21 %; MCH 27.7 pg (25.0-35.0); MCHC 32.3 g/dL (31.0-37.0); MCV 85.9 fL (80.0-100.0); Mean Platelet Volume 7.2; Monocytes # (A) 0.5 k/uL (0-1.0); Monocytes % (A) 6 %; Neutrophils # (A) 6.3 k/uL (1.3-7.7); Neutrophils % (A) 70 %; Platelet Count 309 k/uL (150-450); RDW 13.4 % (11.5-15.5); WBC 9.1 k/uL (3.8-10.6)
[2020-05-11 15:02] LABS: Albumin 4.6 g/dL (3.5-5.0); Calcium 10.3 mg/dL (8.4-10.2); Potassium 3.5 mmol/L (3.5-5.1); Total Bilirubin 0.7 mg/dL (0.2-1.3); Total Protein 8.3 g/dL (6.3-8.2)
== END | disposition home or self-care (01) ==
LOC: LABPAT 12:39
PROVIDERS: ATTEND Surgery Plastic and Reconstructive Surgery
DX: Z01.818 Encounter for other preprocedural examination (principal)
CPT/HCPCS: 36415; 80053; 85025

== ENCOUNTER 2020-05-18 08:38 | Inpatient (IN) | payer BC, OTHER ==
--- NOTE | 2020-05-18 06:22 | P.GSHP ---
History of Present Illness H&P Date: 05/18/20 CHIEF COMPLAINT: Morbid obesity HISTORY OF PRESENT ILLNESS: Leonie Wallace is a 49-year-old female with lifelong morbid obesity. As a results of her morbid obesity, she has developed diabetes type II and hypertensive heart disease. She was recently diagnosed with diabetes type II with Hgb A1c high at 9.5%. Now she reports improvement of her results down to 8.3%. She has completed psychological assessment. She is looking into the sleeve gastrectomy. At height of 5 feet 1 inches, her ideal body weight is 131 pounds. She comes in at her highest weight is 267 pounds, BMI 50.6 from 265 pounds, 1 month ago. She has gained 2 pounds in 1 month. Her body mass index is 50.6. She is 136 pounds overweight. PAST MEDICAL HISTORY: 1. Morbid obesity due to excess calories 2. Body mass index of 49.5, initial 3. Diabetes type II 4. Hypertensive heart disease 5. Anxiety disorder 6. Psychosis 7. Depressive disorder 8. PTSD PAST SURGICAL HISTORY: 1. section 2. Cholecystectomy 3. Hysterectomy 4. Tonsillectomy 5. Right shoulder surgery HOME MEDICATIONS: Home Medications Medication Instructions Recorded Confirmed Brexpiprazole [Rexulti] 2.5 mg PO DAILY 01/22/20 05/06/20 Celecoxib [CeleBREX] 200 mg PO DAILY 01/22/20 05/06/20 Chlorthalidone 25 mg PO DAILY 01/22/20 05/06/20 Pioglitazone [Actos] 30 mg PO DAILY 01/22/20 05/06/20 Tolterodine Tartrate [Tolterodine 2 mg PO DAILY 01/22/20 05/06/20 Tartrate ER] clonazePAM [KlonoPIN] 0.5 mg PO TID PRN 01/22/20 05/06/20 glipiZIDE [Glucotrol] 10 mg PO BID 01/22/20 05/06/20 lamoTRIgine [LaMICtal] 100 mg PO DAILY 01/22/20 05/06/20 lamoTRIgine [LaMICtal] 200 mg PO HS 01/22/20 05/06/20 traZODone HCL [Desyrel] 100 mg PO DAILY@2000 01/22/20 05/06/20 Ergocalciferol (Vitamin D2) 1,250 mcg PO WEEKLY 04/08/20 05/06/20 [Vitamin D2 (50,000 units)] Previous Rx's Medication Instructions Recorded Citalopram Hydrobromide [CeleXA] 40 mg PO DAILY #15 tab 04/24/15 Ergocalciferol [Vitamin D2 50,000 unit PO Q7D #30 cap 04/08/20 (DRISDOL)] ALLERGIES: Allergies Allergy/AdvReac Type Severity Reaction Status Date / Time cephalexin monohydrate Allergy Rapid Verified 01/30/20 07:54 [From Keflex] Heart Rate sulfamethoxazole Allergy Rapid Verified 01/30/20 07:54 [From Bactrim] Heart Rate trimethoprim [From Bactrim] Allergy Rapid Verified 01/30/20 07:54 Heart Rate latex AdvReac Rash/Hives Verified 01/30/20 07:54 some tapes AdvReac Rash/Hives Uncoded 01/30/20 07:54 SOCIAL HISTORY: Past tobacco use. FAMILY HISTORY: No family history of ulcerative colitis disease or Crohn's disease. Family history of morbid obesity. No lupus in the family. No reports of stomach or esophageal cancer. REVIEW OF ORGAN SYSTEMS: CONSTITUTIONAL: At height of 5 feet 1 inches, her ideal body weight is 131 pounds. Her highest weight is 267 pounds, BMI 50.6 HEENT: Denies any active troubles with vision or hearing. ENDOCRINE: Has diabetes mellitus type 2 non-insulin dependent. No hypothyroidism. CARDIOVASCULAR: No past reports of palpitations or heart attacks or chest pain. Has hypertension. RESPIRATORY: Has daytime somnolence. Denies asthma. GASTROINTESTINAL: Denies any bright red blood per rectum. No diarrhea. No constipation. MUSCULOSKELETAL: Has lower back pain and joint pain. Has osteoarthritis of the knees. NEURO: No headaches. No seizure disorders. PSYCH: Has depression. No suicidal ideation. RHEUMATOLOGIC: No lupus. No rheumatoid arthritis. HEMATOLOGIC: Denies any abnormal bleeding or bruising. No personal history of DVTs. SKIN: No rash. No skin cancer. PHYSICAL EXAM: VITAL SIGNS: Height 5 foot 1 inches, weight 265 pounds. BMI 50.3 GENERAL: Well-developed in no acute distress. HEENT: No scleral icterus. Extraocular movements grossly intact. Hears conversational speech. No nasal drainage. NECK: Supple without lymphadenopathy. CHEST: Nonlabored respirations with equal bilateral excursions. CARDIOVASCULAR: Regular rate and regular rhythm. Distal 2+ pulses. ABDOMEN: Obese, soft, nontender, nondistended. MUSCULOSKELETAL: No clubbing, cyanosis. NEURO: No focal or lateralizing signs. Cranial nerves 2 through 12 grossly within normal limits. PSYCH: Appropriate affect. Alert and oriented to person, place and time. SKIN: Good skin turgor. Well perfused. LABS: Reviewed. Hgb A1c down to 8.5%. ASSESSMENT: 1. Morbid obesity due to excess calories 2. Body mass index of 50.6 3. Diabetes type II, poorly controlled 4. Hypertensive heart disease 5. Anxiety disorder 6. Psychosis 7. Depressive disorder 8. PTSD 9. Elevated liver enxymes 10. Hypercholesterolemia 11. Hypertriglyceridemia 12. Vitamin D deficiency 13. ZInc deficiency 14. Dietary surveillance and counseling. PLAN: 1. Bariatric options between a sleeve, band and a Sandra-en-Y gastric bypass were reviewed in detail. The patient elected for a sleeve gastrectomy. Robotic assisted approach described. 2. The [place] [facility] Data was also reviewed with benefits and risks as described. 3. An 8 page second-generation bariatric consent form was reviewed in detail including potential of bleeding, infection, leaks, adequate weight loss, nutritional deficiencies which the patient demonstrated understanding of the risks. 3. DVT prophylaxis 4. Antibiotic prophylaxis. 5. Inpatient hospitalization anticipated for more than 2 nights. Past Medical History Past Medical History: Diabetes Mellitus, GERD/Reflux, Hypertension, Sleep Apnea/CPAP/BIPAP Additional Past Medical History / Comment(s): NO CPAP USED History of Any Multi-Drug Resistant Organisms: None Reported Past Surgical History: Section, Cholecystectomy, Hysterectomy, Orthopedic Surgery, Tonsillectomy Additional Past Surgical History / Comment(s): C-S x2. Right elbow lateral epicondylitis; right shoulder surgery. EGD, Colonoscopy Past Anesthesia/Blood Transfusion Reactions: Previous Problems w/ Anesthesia, Postoperative Nausea & Vomiting (PONV) Additional Past Anesthesia/Blood Transfusion Reaction / Comment(s): c/o headache with Anesthesia Smoking Status: Never smoker - Past Family History Mother Family Medical History: Congestive Heart Failure (CHF), Coronary Artery Disease (CAD), Hypertension, Rheumatoid Arthritis (RA) Additional Family Medical History / Comment(s): Mother is alive at age 70 with a (family history of diabetes), coronary artery disease status post stent placement, polymyalgia. Father Family Medical History: No Reported History Additional Family Medical History / Comment(s): Father is alive at age 71 with no major medical problems. Brother(s) Family Medical History: No Reported History Additional Family Medical History / Comment(s): Patient has a brother age 48 and a second brother age 40 with no major medical problems. Patient has 1 sister with no major medical problems. She has one son and one daughter with no major medical problems. Medications and Allergies Home Medications Medication Instructions Recorded Confirmed Type Citalopram Hydrobromide [CeleXA] 40 mg PO DAILY #15 tab 04/24/15 05/12/20 Rx Brexpiprazole [Rexulti] 2.5 mg PO DAILY 01/22/20 05/12/20 History Celecoxib [CeleBREX] 200 mg PO DAILY 01/22/20 05/12/20 History Chlorthalidone 25 mg PO DAILY 01/22/20 05/12/20 History Pioglitazone [Actos] 30 mg PO DAILY 01/22/20 05/12/20 History Tolterodine Tartrate [Tolterodine 2 mg PO DAILY 01/22/20 05/12/20 History Tartrate ER] clonazePAM [KlonoPIN] 0.5 mg PO TID PRN 01/22/20 05/12/20 History glipiZIDE [Glucotrol] 10 mg PO BID 01/22/20 05/12/20 History lamoTRIgine [LaMICtal] 100 mg PO DAILY 01/22/20 05/12/20 History lamoTRIgine [LaMICtal] 200 mg PO HS 01/22/20 05/12/20 History traZODone HCL [Desyrel] 100 mg PO DAILY@199901/22/20 05/12/20 History Ergocalciferol [Vitamin D2 50,000 unit PO Q7D #30 cap 04/08/20 05/12/20 Rx (DRISDOL)] Biotin (Unknown Dose) 1 tab PO DAILY 05/12/20 History Calcium Citrate 500 mg PO TID 05/12/20 05/12/20 History Multivitamins, Thera [Multivitamin 1 tab PO DAILY 05/12/20 05/12/20 History (formulary)] Allergies Allergy/AdvReac Type Severity Reaction Status Date / Time cephalexin monohydrate Allergy Rapid Verified 05/12/20 17:07 [From Keflex] Heart Rate sulfamethoxazole Allergy Rapid Verified 05/12/20 17:07 [From Bactrim] Heart Rate trimethoprim [From Bactrim] Allergy Rapid Verified 05/12/20 17:07 Heart Rate latex AdvReac Rash/Hives Verified 05/12/20 17:07 some tapes AdvReac Rash/Hives Uncoded 05/12/20 17:07
[~2020-05-18 08:38] MED LIST changes: +ACETAMINOPHEN TAB 500 MG TAB PO STA; +CHLORHEXIDINE GLUCONATE 15 ML CUP MUCOUS MEM PRN; +ENOXAPARIN 40 MG/0.4 ML SYRINGE SQ PRN; +GABAPENTIN 300 MG CAP PO STA; -HYDROmorphone 0.5 MG/0.5 ML SYRINGE IVP PRN; -LACTATED RINGERS 1,000 ML IV SCH; +MELOXICAM 7.5 MG TAB PO PRN; +PANTOPRAZOLE 40 MG/10 ML VIAL IVP PRN; +SCOPOLAMINE 1.5MG/72HR PATCH TRANSDERM STA; +ceFAZolin 3 GM in SODIUM CHLORIDE 0.9% 100 ML IVPB PRN
[2020-05-18 09:19] LABS: Glucose,Whole Blood 121 mg/dL (75-99)
[2020-05-18] MEDS ORDERED: MIDAZOLAM 2 MG/2 ML VIAL IV ONE (09:29)
[2020-05-18 09:35] LABS: Basophils # (A) 0.1 k/uL (0-0.2); Basophils % (A) 1 %; Eosinophils # (A) 0.4 k/uL (0-0.7); Eosinophils % (A) 5 %; HCT 41.9 % (34.0-46.0); HGB 13.9 gm/dL (11.4-16.0); Lymphocytes # (A) 2.3 k/uL (1.0-4.8); Lymphocytes % (A) 31 %; MCH 27.7 pg (25.0-35.0); MCHC 33.1 g/dL (31.0-37.0); MCV 83.6 fL (80.0-100.0); Monocytes # (A) 0.4 k/uL (0-1.0); Monocytes % (A) 6 %; Neutrophils # (A) 4.2 k/uL (1.3-7.7); Neutrophils % (A) 56 %; Platelet Count 341 k/uL (150-450); RBC 5.01 m/uL (3.80-5.40); RDW 12.9 % (11.5-15.5); WBC 7.4 k/uL (3.8-10.6)
[2020-05-18] MEDS: LACTATED RINGERS 1,000 ML IV SCH (09:36)
[2020-05-18 09:45] LABS: Albumin 4.4 g/dL (3.5-5.0); Calcium 9.6 mg/dL (8.4-10.2); Potassium 2.8 mmol/L (3.5-5.1); Total Bilirubin 0.6 mg/dL (0.2-1.3)
[2020-05-18] MEDS ORDERED: fentaNYL (PF) 50 MCG/ML 2 ML AMP ONE (10:00)
[2020-05-18] MEDS ORDERED: MIDAZOLAM 2 MG/2 ML VIAL ONE (10:00)
[2020-05-18] MEDS ORDERED: LIDOCAINE 1% INJ 10MG/ML (20 ML MDV) ONE (10:00)
[2020-05-18] MEDS ORDERED: PROPOFOL 10 MG/ML 20 ML VIAL IV ONE (10:00)
[2020-05-18] MEDS ORDERED: NEOSTIGMINE 1 MG/ML 10 ML VIAL ONE (10:00)
[2020-05-18] MEDS ORDERED: HYDROmorphone (PF) 1 MG/ML ONE (10:00)
[2020-05-18] MEDS ORDERED: ROPIVACAINE 5 MG/ML 30 ML VIAL ONE (10:00)
[2020-05-18] MEDS ORDERED: ROCURONIUM 10 MG/ML (5 ML VIAL) IV ONE (10:00)
[2020-05-18] MEDS ORDERED: SUCCINYLCHOLINE CHLORIDE VIAL 200 MG/10 ML VIAL IV ONE (10:00)
[2020-05-18] MEDS ORDERED: GLYCOPYRROLATE 0.2 MG/ML 2 ML VIAL ONE (10:00)
--- NOTE | 2020-05-18 10:02 | P.HPADDEND ---
H&P Addendum H&P Addendum Date: 05/18/20 Patient has low potassium 2.8. Clarified by anesthesia team, patient may proceed with surgery with potassium infusions. Patient reports taking her diuretic and had moderate weight loss 19-23 pounds with moderate urination. She denies any abdominal pain. Agreeable to proceed with sleeve gastrectomy.
[2020-05-18] MEDS: POTASSIUM CHLORIDE 10 MEQ in WATER FOR INJECTION 1 100ML.BAG IVPB SCH ×3 (10:04→13:12)
--- NOTE | 2020-05-18 10:44 | P.ANPRN ---
Procedure Note - Anesthesia - Nerve Block Performed Bilateral Erector Spinae Single Time Out Performed: Yes Date of Procedure: 05/18/20 Procedure Start Time: Procedure Stop Time: Indication: Acute Post-Operative Pain, Dx/Pain Location, Requested by Surgeon Sedation Type: Sedate with meaningful contact maintained Preparation: Sterile Prep Position: Sitting Catheter: None Needle Types: Pajunk Needle Gauge: 21 Ultrasound used to visualize needle placement: Yes Ultrasound used to observe medication spread: Yes Injectate: 0.5% Ropivacaine (see comment for volume) (15ml b/l) Blood Aspirated: No Pain Paresthesia on Injection Noted: No Resistance on Injection: Normal Image Stored and Saved: Yes Events: Uneventful and Well Tolerated
[2020-05-18] MEDS ORDERED: BUPIVACAIN-EPI 0.5%-1:200,000 30 ML VIAL SQ ONE (10:54)
[2020-05-18] MEDS: HYDROmorphone 0.5 MG/0.5 ML SYRINGE IVP PRN ×2 (11:59→12:04)
[2020-05-18 12:10] LABS: Glucose,Whole Blood 223 mg/dL (75-99)
[2020-05-18] MEDS ORDERED: diphenhydrAMINE 50 MG/ML 1 ML VIAL IVP PRN (12:11)
[2020-05-18] MEDS ORDERED: NALOXONE 0.4 MG/ML 1 ML VIAL IV PRN (12:11)
[2020-05-18] MEDS ORDERED: INSULIN ASPART (NovoLOG) 100 UNIT/ML VIAL SQ ONE (12:12)
[2020-05-18] MEDS ORDERED: clonazePAM 0.5 MG TAB PO PRN (12:13)
[2020-05-18] MEDS ORDERED: LACTATED RINGERS 1,000 ML IV ONE (12:20)
[2020-05-18] MEDS ORDERED: diphenhydrAMINE 50 MG/ML 1 ML VIAL IVP ONE (12:23)
--- NOTE | 2020-05-18 12:23 | P.OP ---
Date of Procedure: 05/18/20 Description of Procedure: SURGEON: MANDI ROWLEY MD PREOPERATIVE DIAGNOSES: 1. Morbid obesity due to excess calories 2. Body mass index of 50.6 3. Diabetes type II, poorly controlled 4. Hypertensive heart disease 5. Anxiety disorder 6. Psychosis 7. Depressive disorder 8. PTSD 9. Elevated liver enxymes 10. Hypercholesterolemia 11. Hypertriglyceridemia 12. Vitamin D deficiency 13. ZInc deficiency 14. Dietary surveillance and counseling. POSTOPERATIVE DIAGNOSES: 1. Morbid obesity due to excess calories 2. Body mass index of 50.6 3. Diabetes type II, poorly controlled 4. Hypertensive heart disease 5. Anxiety disorder 6. Psychosis 7. Depressive disorder 8. PTSD 9. Elevated liver enxymes 10. Hypercholesterolemia 11. Hypertriglyceridemia 12. Vitamin D deficiency 13. ZInc deficiency 14. Dietary surveillance and counseling. 15. Mild hepatomegaly with fatty liver disease OPERATION: 1. Robotic assisted daVinci Xi laparoscopic sleeve gastrectomy with 40[place] bougie, multiport. 2. Intraoperative esophagogastroduodenoscopy. ANESTHESIA: Gen. local anesthetic ESTIMATED BLOOD LOSS: 5 mL SPECIMENS REMOVED: Sleeve gastrectomy COMPLICATIONS: None. FINDINGS: 1. Negative intraoperative esophagogastrojejunoscopy leak test. 2. Mild hepatomegaly with fatty liver disease and no large hiatus hernia. 3. Total of 6 staplers used including 1 - 60 mm black robot patrick and 5 - 60 mm green robot loads used to create the gastric sleeve. 4. Sleeve gastrectomy, 28 x 4 cm INDICATIONS: Leonie Wallace is a 49-year-old female with lifelong morbid obesity. As a results of her morbid obesity, she has developed diabetes type II and hypertensive heart disease. She is looking into the sleeve gastrectomy. At height of 5 feet 1 inches, her ideal body weight is 131 pounds. She comes in at her highest weight is 267 pounds, BMI 50.6 from 265 pounds, 1 month ago. She has gained 2 pounds in 1 month. Her body mass index is 50.6. She is 136 pounds overweight. All surgical options for morbid obesity had been described using the [place] bariatric surgery collaborative comorbidity resolution including complication risk score. A second-generation bariatric consent form was described in detail including the possibility of protein malnutrition, leaks, gastric stricture, venous thrombosis, gastroesophageal reflux disease, need for further surgery for which she demonstrated understanding. Benefits and risks of the procedure were described at length. Informed consent was obtained. DESCRIPTION: The patient was brought into the operating room theater. Preoperatively she had received Lovenox subcutaneously for DVT prophylaxis. Additionally she had Peridex oral solution as an oral decontaminant. After general induction, the abdomen was prepped and draped in standard sterile fashion. An Ioban draping was placed along the abdomen. A robotic da Anthony Xi system was prepped and primed. At 15 cm from the xiphoid, proposed port sites were marked with indelible marker along the anterior axillary line bilaterally, mid axillary line bilaterally with each ports were marked 10 to 15 cm from each other. The content assistant port was marked along the left lateral abdominal wall. The robotic stapler port was marked for the right midclavicular line. A 5 mm 0 degrees laparoscopic trocar entry was performed along the left upper quadrant. The abdomen was insufflated to 15 mmHg pressure was tolerated well. Diagnostic laparoscopy demonstrated no injury to bowel, viscera, or mesentery. No evidence of large hiatus hernia was identified. The liver edge was round despite her 2 week low-carb high-protein diet. A 8 mm port was placed along the left upper abdominal wall after exchanging the 5 mm port. A separate 8 mm port was placed along the left lateral abdominal wall. Please note that the ports were placed at least 20 cm away from the target anatomy. Care was taken to check each robotic arms were safely away from collision with the bed or the patient. At the epigastrium, a medium sized Pili liver retractor was placed under direct visualization with the [employer] Powerline Examiner placed under the right shoulder of the patient. Next, 12-mm robot stapler port was placed along the right upper quadrant. The camera 8-mm port was maintained along the epigastrium. The patient was repositioned in reverse Trendelenburg position at 21-degrees after lowering the bed. The robot was docked along the left side of the patient. Using a grasper for arm 4, a vessel sealer for arm 3, including grasper for arm 1, the robotic system was docked and primed as described. Instruments were interchanged by the content assistant for stapler loads. The camera was placed at 30-degrees down. I had sat at the console. The pylorus was identified and 6 cm proximally along the greater curvature of the stomach, the short gastrics were mobilized upwards to the angle of His using a vessel sealer. Hemostasis was excellent during this portion of the procedure. Next, the upper pole of the stomach was adherent to the left christoph, which was gently dissected free using atraumatic grasper. I went to the head of the bed and placed 40[place] blunt bougie into the stomach. The bougie was readjusted by the nurse behavioral health case manager. Robotic stapler black load 60 mm 1 followed by green 60 mm x 5 loads were used to create the sleeve. Initial firing was across the antrum of the stomach towards the angle of His. The staple line was linear without corkscrewing. The space from the angularis incisura of the sleeve was approximately 4 cm. I then went to the head of the bed to perform the intraoperative esophagogastroduodenoscopy leak test. The bougie was withdrawn. The upper pole of the stomach was bathed using normal saline solution. The scope was withdrawn with careful inspection along the staple line for which no leaks were found along the entire length. Additionally,the sleeve was completely hemostatic without any encroachment along the angularis incisura. Its topology was a soft "J". No stricture was encountered upon placement of the scope. The GI tract was desufflated. The patient tolerated this portion of the procedure well. The scope was completely withdrawn. The robot was undocked. I then rescrubbed into case, whereby the irrigation fluid was aspirated from the abdominal cavity. Tisseel fibrin sealant was placed along the entire staple length. Once dried the Pili liver retractor was removed. Attention was now brought to removal of the specimen. The distal end of the sleeve gastrectomy specimen was brought out through the 12 mm port at the left upper quadrant. The specimen was gently removed en total. No contamination had occurred during this process. All instruments and pneumoperitoneum including irrigation fluid was removed from the abdominal cavity. The 12 mm port site was closed using 0-Vicryl and Vasquez Merrill and irrigated with diluted hydrogen peroxide. The final incisions were closed using subcuticular interrupted suture of 4-0 Monocryl. Exofin was applied to the skin once the skin had been cleansed. OptiFoam dressing was placed along the stomach extraction site. The sleeve specimen was measured and checked also for leaks which none were found. At the end of the procedure, needle, sponge, and instrument count was verified correct by the auto repair technician. The patient was taken to the postanesthesia care unit in stable condition. The patient tolerated the procedure well. Intraoperative films and findings were reviewed with the patient's family.
[2020-05-18] MEDS: ONDANSETRON 4 MG/2 ML VIAL IVP SCH ×3 (13:12→23:50)
[2020-05-18] MEDS: 0.9% NACL WITH KCL 20 MEQ/L 1,000 ML IV SCH (15:26)
[2020-05-18] MEDS ORDERED: ACETAMINOPHEN IV (For NPO) 1,000 MG in EMPTY BAG 1 BAG IVPB ONE (15:35)
[2020-05-18] MEDS: ALBUTEROL NEBULIZED 2.5 MG/3 ML INHALATION SCH ×2 (17:09→21:04)
[2020-05-18] MEDS: KETOROLAC 15 MG/ML 1 ML VIAL IVP SCH ×2 (17:49→23:50)
[2020-05-18] MEDS: SIMETHICONE 40 MG/0.6 ML DROPS 2,000 MG/30 ML BOTTLE PO SCH ×2 (18:00→23:51)
[2020-05-18] MEDS: HYOSCYAMINE ORAL DROPS 1.875 MG/15 ML BOTTLE PO SCH ×2 (18:02→23:51)
[2020-05-18] MEDS: traZODone HCL 100 MG TAB PO SCH (21:00)
[2020-05-18] MEDS: lamoTRIgine 100 MG TAB PO SCH (21:00)
[2020-05-19] MEDS: 0.9% NACL WITH KCL 20 MEQ/L 1,000 ML IV SCH ×4 (00:17→17:58)
[2020-05-19] MEDS: LACTATED RINGERS 1,000 ML IV SCH (04:02)
[2020-05-19] MEDS ORDERED: DEXAMETHASONE SOD PHOSPHATE 10 MG/ML 1 ML VIAL IV PRN (05:11)
[2020-05-19] MEDS: ONDANSETRON 4 MG/2 ML VIAL IVP SCH ×4 (05:11→23:25)
[2020-05-19] MEDS: HYOSCYAMINE ORAL DROPS 1.875 MG/15 ML BOTTLE PO SCH ×2 (05:11→15:31)
[2020-05-19] MEDS: KETOROLAC 15 MG/ML 1 ML VIAL IVP SCH ×2 (05:11→12:17)
[2020-05-19] MEDS: SIMETHICONE 40 MG/0.6 ML DROPS 2,000 MG/30 ML BOTTLE PO SCH ×4 (05:11→23:25)
[2020-05-19 05:36] LABS: Glucose,Whole Blood 178 mg/dL (75-99)
[2020-05-19] MEDS: DEXAMETHASONE SOD PHOSPHATE 4 MG/ML 1 ML VIAL IV SCH ×4 (05:37→23:25)
[2020-05-19] MEDS: INSULIN ASPART (NovoLOG) 100 UNIT/ML VIAL SQ SCH ×4 (05:38→23:25)
[2020-05-19] MEDS: ACETAMINOPHEN IV (For NPO) 1,000 MG in EMPTY BAG 1 BAG IVPB SCH ×4 (05:38→23:45)
--- NOTE | 2020-05-19 08:55 | FL ---
EXAMINATION TYPE: FL UGI DATE OF EXAM: 05/19/2020 LIMITED UGI: CLINICAL HISTORY: Morbid Obesity, gastric sleeve surgery yesterday. TECHNIQUE: Limited esophagram is performed utilizing 30 oz of Isovue-370. A total of 10 seconds of f luoroscopic time was utilized during procedure and 47 images obtained. COMPARISON: None. FINDINGS: The patient swallowed contrast without difficulty or delay. Esophageal peristalsis and mo tility are within normal limits. There is good flow of contrast along the diaphragmatic hiatus into proximal stomach and subsequent flow through proximal anastomosis into gastric sleeve. There is good flow from distal sleeve and anastomosis into pylorus and duodenal sweep. Patient remains asymptomatic . There is no evidence of contrast extravasation to suggest leak. Cholecystectomy clips incidentally noted. IMPRESSION: No evidence of leak or significant obstruction status post recent gastric sleeve surgery.
[2020-05-19] MEDS: ALBUTEROL NEBULIZED 2.5 MG/3 ML INHALATION SCH ×5 (09:16→19:42)
[2020-05-19] MEDS: PATIENT'S OWN (Brexpiprazole [Rexulti] 2 MG Tablet) PO SCH (09:21)
[2020-05-19] MEDS: CITALOPRAM HYDROBROMIDE 20 MG TAB PO SCH (09:22)
[2020-05-19] MEDS: lamoTRIgine 100 MG TAB PO SCH ×2 (09:22→20:04)
[2020-05-19] MEDS: ENOXAPARIN 40 MG/0.4 ML SYRINGE SQ SCH (09:22)
[2020-05-19] MEDS: HYDROmorphone 1 MG/ML 1 ML SYRINGE IVP PRN ×2 (09:47→23:25)
[2020-05-19 11:12] VITALS: BMI 49.8
[2020-05-19 11:20] LABS: Basophils # (A) 0.04 X 10*3/uL (0.00-0.10); Basophils % (A) 0.4 %; Eosinophils # (A) 0.01 X 10*3/uL (0.04-0.35); Eosinophils % (A) 0.1 %; HCT 30.5 % (37.2-46.3); HGB 9.2 g/dL (12.0-15.0); Lymphocytes # (A) 2.25 X 10*3/uL (0.90-5.00); Lymphocytes % (A) 22.3 %; MCH 27.5 pg (27.0-32.0); MCHC 30.2 g/dL (32.0-37.0); MCV 91.3 fL (80.0-97.0); Mean Platelet Volume 10.5 fL (9.5-12.2); Monocytes # (A) 0.88 X 10*3/uL (0.20-1.00); Monocytes % (A) 8.7 %; Neutrophils # (A) 6.88 X 10*3/uL (1.80-7.70); Neutrophils % (A) 68.1 %; Platelet Count 370 X 10*3/uL (140-440); RBC 3.34 X 10*6/uL (4.10-5.20); RDW 13.8 % (11.5-14.5)
[2020-05-19 11:22] LABS: Glucose,Whole Blood 232 mg/dL (75-99)
[2020-05-19 11:47] LABS: African American GFR (CKD) 42.8 (60.0-200.0); Anion Gap 11.7 mmol/L (4.00-12.00); Calcium 7.8 mg/dL (8.7-10.3); Carbon Dioxide 24.3 mmol/L (21.6-31.8); Magnesium 2.1 mg/dL (1.5-2.4); Non-African American GFR(CKD) 36.9 (60.0-200.0); Phosphorus 4.9 mg/dL (2.4-5.1); Potassium 3.5 mmol/L (3.5-5.5)
[2020-05-19] MEDS ORDERED: SODIUM CHLORIDE 0.9% 1,000 ML IV ONE ×2 (12:13→12:14)
--- NOTE | 2020-05-19 13:38 | P.PN ---
<Mariana Martinez - Last Filed: 05/19/20 13:30> Subjective Progress Note Date: 05/19/20 CHIEF COMPLAINT: Morbid obesity HISTORY OF PRESENT ILLNESS: Patient is postop day #1 status post Robotic assisted daVinci Xi laparoscopic sleeve gastrectomy and Intraoperative esophagogastroduodenoscopy. Patient had issues with urinary retention. She did require to be straight cathed through the night. Patient is complaining of gas pains. She has been up and ambulating. She denies any nausea. She denies any flatus or BM. She is afebrile. WBC 10.10 Hgb 9.2 potassium is up from 2.8 to 3.5. Creatinine is 1.6 BUN 31 sugar 232 Mg 2.1 PHYSICAL EXAM: VITAL SIGNS: Reviewed GENERAL: Well-developed in no acute distress. HEENT: No sclera icterus. Extraocular movements grossly intact. Moist buccal mucosa. Head is atraumatic, normocephalic. Hears conversational speech. No nasal drainage. NECK: Supple without lymphadenopathy. CHEST: Non-labored respirations and equal bilateral excursions. CARDIOVASCULAR: Palpable 2+ radial pulses. ABDOMEN: Soft. Nondistended. Incision site clean dry and intact MUSCULOSKELETAL: No clubbing or cyanosis. NEUROLOGIC: No focal or lateralizing signs. Cranial nerves II through XII grossly intact. PSYCH: Appropriate affect. Alert and oriented to person, place and time. SKIN: Well perfused. Good skin turgor. ASSESSMENT: 1. Morbid obesity due to excess calories patient is status post Robotic assisted daVinci Xi laparoscopic sleeve gastrectomy and Intraoperative esophago gastroduodenoscopy 2. Body mass index of 50.6 3. Diabetes type II, poorly controlled 4. Hypertensive heart disease 5. Anxiety disorder 6. Psychosis 7. Depressive disorder 8. PTSD 9. Elevated liver enxymes 10. Hypercholesterolemia 11. Hypertriglyceridemia 12. Vitamin D deficiency 13. ZInc deficiency 14. Dietary surveillance and counseling. 15. Mild hepatomegaly with fatty liver disease 16. Hypokalemia improving 17. Acute kidney injury, creatinine 1.6 18. Urinary retention PLAN: -Discontinue scopolamine patch due to side effect of urinary retention -Discontinue Toradol due to the increase in kidney function -We'll give a 2 L fluid bolus -Check hemoglobin A1c due to history of diabetes -Encouraged patient to ambulate -Encouraged patient to use incentive spirometer -Continue Lovenox for DVT prophylaxis Physician Site Coordinator note has been reviewed by physician. Signing provider agrees with the documented findings, assessment, and plan of care. Objective - Vital Signs Vital signs: Vital Signs Temp 98.0 F 05/19/20 07:44 Pulse 80 05/19/20 11:57 Resp 18 05/19/20 08:00 BP 102/56 05/19/20 07:44 Pulse Ox 91 L 05/19/20 07:44 Intake & Output 05/18/20 05/19/20 05/19/20 18:59 06:59 18:59 Intake Total 1400 1200 Output Total 5 500 50 Balance 1395 700 -50 Weight 115.8 kg 115.8 kg Intake: IV 1100 Intake, IV Titration 300 1200 Amount 0.9% NaCl with KCl 20 Meq 300 /l 1,000 ml @ 100 mls/hr IV .Q10H MAGGIE Rx#: [id number] 0.9% NaCl with KCl 20 Meq 1200 /l 1,000 ml @ 150 mls/hr IV .Q6H40M MAGGIE Rx#: [id number] Output: Urine 500 50 Straight 400 Estimated Blood Loss 5 Other: # Voids 1 - Labs CBC & Chem 7: 05/19/20 06:14 05/19/20 06:14 Labs: Abnormal Lab Results - Last 24 Hours (Table) 05/18/20 05/19/20 05/19/20 Range/Units 14:28 05:35 06:14 WBC 10.10 H (4.50-10.00) X 10*3/uL RBC 3.34 L (4.10-5.20) X 10*6/uL Hgb 9.2 L (12.0-15.0) g/dL Hct 30.5 L (37.2-46.3) % MCHC 30.2 L (32.0-37.0) g/dL Eosinophils # 0.01 L (0.04-0.35) X 10*3/uL Potassium 3.0 L (3.5-5.1) mmol/L BUN (9.0-27.0) mg/dL Creatinine (0.6-1.5) mg/dL Est GFR (CKD-EPI)AfAm (60.0-200.0) Est GFR (CKD-EPI)NonAf (60.0-200.0) POC Glucose (mg/dL) 178 H (75-99) mg/dL Calcium (8.7-10.3) mg/dL 05/19/20 05/19/20 Range/Units 06:14 11:17 WBC (4.50-10.00) X 10*3/uL RBC (4.10-5.20) X 10*6/uL Hgb (12.0-15.0) g/dL Hct (37.2-46.3) % MCHC (32.0-37.0) g/dL Eosinophils # (0.04-0.35) X 10*3/uL Potassium (3.5-5.1) mmol/L BUN 30.0 H (9.0-27.0) mg/dL Creatinine 1.6 H (0.6-1.5) mg/dL Est GFR (CKD-EPI)AfAm 42.8 L (60.0-200.0) Est GFR (CKD-EPI)NonAf 36.9 L (60.0-200.0) POC Glucose (mg/dL) 232 H (75-99) mg/dL Calcium 7.8 L (8.7-10.3) mg/dL <Jaja Ga N - Last Filed: 05/20/20 09:53> Subjective Please see additional documentation below. Recommend IV fluid hydration for dehydration and elevated creatinine. Also patient has diabetes with blood sugars over 150,recommend recheck of hemoglobin A1c. Objective - Vital Signs Vital signs: Vital Signs Temp 97.9 F 05/20/20 08:00 Pulse 91 05/20/20 09:06 Resp 18 05/20/20 08:00 BP 94/61 05/20/20 08:00 Pulse Ox 96 05/20/20 08:00 Intake & Output 05/19/20 05/20/20 05/20/20 18:59 06:59 18:59 Intake Total 500 Output Total 850 Balance -350 Weight 115.8 kg Intake: Oral 500 Output: Urine 850 Other: Voiding Method Toilet # Voids 3 - Labs CBC & Chem 7: 05/19/20 06:14 05/19/20 06:14 Labs: Abnormal Lab Results - Last 24 Hours (Table) 05/18/20 05/19/20 05/19/20 Range/Units 09:19 06:14 06:14 WBC 10.10 H (4.50-10.00) X 10*3/uL RBC 3.34 L (4.10-5.20) X 10*6/uL Hgb 9.2 L (12.0-15.0) g/dL Hct 30.5 L (37.2-46.3) % MCHC 30.2 L (32.0-37.0) g/dL Eosinophils # 0.01 L (0.04-0.35) X 10*3/uL BUN 30.0 H (9.0-27.0) mg/dL Creatinine 1.6 H (0.6-1.5) mg/dL Est GFR (CKD-EPI)AfAm 42.8 L (60.0-200.0) Est GFR (CKD-EPI)NonAf 36.9 L (60.0-200.0) POC Glucose (mg/dL) (75-99) mg/dL Hemoglobin A1c 6.7 H (4.0-6.0) % Calcium 7.8 L (8.7-10.3) mg/dL 05/19/20 05/19/20 05/19/20 Range/Units 11:17 16:40 23:20 WBC (4.50-10.00) X 10*3/uL RBC (4.10-5.20) X 10*6/uL Hgb (12.0-15.0) g/dL Hct (37.2-46.3) % MCHC (32.0-37.0) g/dL Eosinophils # (0.04-0.35) X 10*3/uL BUN (9.0-27.0) mg/dL Creatinine (0.6-1.5) mg/dL Est GFR (CKD-EPI)AfAm (60.0-200.0) Est GFR (CKD-EPI)NonAf (60.0-200.0) POC Glucose (mg/dL) 232 H 206 H 183 H (75-99) mg/dL Hemoglobin A1c (4.0-6.0) % Calcium (8.7-10.3) mg/dL 05/20/20 05/20/20 Range/Units 05:14 07:14 WBC (4.50-10.00) X 10*3/uL RBC (4.10-5.20) X 10*6/uL Hgb (12.0-15.0) g/dL Hct (37.2-46.3) % MCHC (32.0-37.0) g/dL Eosinophils # (0.04-0.35) X 10*3/uL BUN (9.0-27.0) mg/dL Creatinine (0.6-1.5) mg/dL Est GFR (CKD-EPI)AfAm (60.0-200.0) Est GFR (CKD-EPI)NonAf (60.0-200.0) POC Glucose (mg/dL) 192 H 181 H (75-99) mg/dL Hemoglobin A1c (4.0-6.0) % Calcium (8.7-10.3) mg/dL
[2020-05-19 16:45] LABS: Glucose,Whole Blood 206 mg/dL (75-99)
[2020-05-19] MEDS: traZODone HCL 100 MG TAB PO SCH (20:04)
[2020-05-19 23:21] LABS: Glucose,Whole Blood 183 mg/dL (75-99)
[2020-05-20 02:37] VITALS: TEMP 97.9
[2020-05-20 05:16] LABS: Glucose,Whole Blood 192 mg/dL (75-99)
[2020-05-20] MEDS: INSULIN ASPART (NovoLOG) 100 UNIT/ML VIAL SQ SCH ×2 (05:20→11:33)
[2020-05-20] MEDS: ONDANSETRON 4 MG/2 ML VIAL IVP SCH ×2 (05:20→11:30)
[2020-05-20] MEDS: DEXAMETHASONE SOD PHOSPHATE 4 MG/ML 1 ML VIAL IV SCH ×2 (05:20→11:33)
[2020-05-20] MEDS: HYDROmorphone 1 MG/ML 1 ML SYRINGE IVP PRN (05:20)
[2020-05-20] MEDS: SIMETHICONE 40 MG/0.6 ML DROPS 2,000 MG/30 ML BOTTLE PO SCH ×2 (05:20→11:32)
[2020-05-20] MEDS: 0.9% NACL WITH KCL 20 MEQ/L 1,000 ML IV SCH (05:29)
[2020-05-20] MEDS: LACTATED RINGERS 1,000 ML IV SCH (06:39)
[2020-05-20] MEDS: PATIENT'S OWN (Brexpiprazole [Rexulti] 2 MG Tablet) PO SCH (06:41)
[2020-05-20 07:15] LABS: Glucose,Whole Blood 181 mg/dL (75-99)
[2020-05-20] MEDS: CITALOPRAM HYDROBROMIDE 20 MG TAB PO SCH (07:51)
[2020-05-20] MEDS: ENOXAPARIN 40 MG/0.4 ML SYRINGE SQ SCH (07:51)
[2020-05-20] MEDS: lamoTRIgine 100 MG TAB PO SCH (07:52)
[2020-05-20] MEDS ORDERED: bisacodyL 5 MG TABLET.DR PO PRN (08:00)
[2020-05-20] MEDS: ALBUTEROL NEBULIZED 2.5 MG/3 ML INHALATION SCH ×2 (08:56→11:38)
[2020-05-20 08:58] LABS: Hemoglobin A1C 6.7 % (4.0-6.0)
[2020-05-20 09:19] VITALS: BP 94/61; PULSE 85; RESP 18
--- NOTE | 2020-05-20 09:57 | P.PN ---
Subjective Progress Note Date: 05/20/20 CHIEF COMPLAINT: Status post sleeve gastrectomy HISTORY OF PRESENT ILLNESS: Leonie Wallace is a 49-year-old female status post sleeve gastrectomy, 05/18/2020. She is passing flatus. She is tolerating diet. She is keeping herself well-hydrated. She is voiding spontaneously. No further urinary retention. She is ambulating. PHYSICAL EXAM: VITAL SIGNS: Height 5 foot 1 inches, weight 265 pounds. BMI 50.3 GENERAL: Well-developed in no acute distress. HEENT: No scleral icterus. Extraocular movements grossly intact. Hears conversational speech. No nasal drainage. NECK: Supple without lymphadenopathy. CHEST: Nonlabored respirations with equal bilateral excursions. CARDIOVASCULAR: Regular rate and regular rhythm. Distal 2+ pulses. ABDOMEN: Dressing intact. MUSCULOSKELETAL: No clubbing, cyanosis. NEURO: No focal or lateralizing signs. Cranial nerves 2 through 12 grossly within normal limits. PSYCH: Appropriate affect. Alert and oriented to person, place and time. SKIN: Good skin turgor. Well perfused. ASSESSMENT: 1. Morbid obesity due to excess calories 2. Body mass index of 50.6 3. Diabetes type II, poorly controlled 4. Hypertensive heart disease 5. Anxiety disorder 6. Psychosis 7. Depressive disorder 8. PTSD 9. Elevated liver enxymes 10. Hypercholesterolemia 11. Hypertriglyceridemia 12. Vitamin D deficiency 13. ZInc deficiency 14. Dietary surveillance and counseling. PLAN: 1. Overall doing well. 2. Discharge with follow-up in the bariatric center 3 days. Objective - Vital Signs Vital signs: Vital Signs Temp 97.9 F 05/20/20 01:09 Pulse 84 05/20/20 01:09 Resp 17 05/20/20 01:09 BP 110/62 05/20/20 01:09 Pulse Ox 94 L 05/20/20 01:09 Intake & Output 05/19/20 05/20/20 05/20/20 18:59 06:59 18:59 Intake Total 500 Output Total 850 Balance -350 Weight 115.8 kg Intake: Oral 500 Output: Urine 850 Other: Voiding Method Toilet # Voids 3 - Labs CBC & Chem 7: 05/19/20 06:14 05/19/20 06:14 Labs: Abnormal Lab Results - Last 24 Hours (Table) 05/19/20 05/19/20 05/19/20 Range/Units 06:14 06:14 11:17 WBC 10.10 H (4.50-10.00) X 10*3/uL RBC 3.34 L (4.10-5.20) X 10*6/uL Hgb 9.2 L (12.0-15.0) g/dL Hct 30.5 L (37.2-46.3) % MCHC 30.2 L (32.0-37.0) g/dL Eosinophils # 0.01 L (0.04-0.35) X 10*3/uL BUN 30.0 H (9.0-27.0) mg/dL Creatinine 1.6 H (0.6-1.5) mg/dL Est GFR (CKD-EPI)AfAm 42.8 L (60.0-200.0) Est GFR (CKD-EPI)NonAf 36.9 L (60.0-200.0) POC Glucose (mg/dL) 232 H (75-99) mg/dL Calcium 7.8 L (8.7-10.3) mg/dL 05/19/20 05/19/20 05/20/20 Range/Units 16:40 23:20 05:14 WBC (4.50-10.00) X 10*3/uL RBC (4.10-5.20) X 10*6/uL Hgb (12.0-15.0) g/dL Hct (37.2-46.3) % MCHC (32.0-37.0) g/dL Eosinophils # (0.04-0.35) X 10*3/uL BUN (9.0-27.0) mg/dL Creatinine (0.6-1.5) mg/dL Est GFR (CKD-EPI)AfAm (60.0-200.0) Est GFR (CKD-EPI)NonAf (60.0-200.0) POC Glucose (mg/dL) 206 H 183 H 192 H (75-99) mg/dL Calcium (8.7-10.3) mg/dL 05/20/20 Range/Units 07:14 WBC (4.50-10.00) X 10*3/uL RBC (4.10-5.20) X 10*6/uL Hgb (12.0-15.0) g/dL Hct (37.2-46.3) % MCHC (32.0-37.0) g/dL Eosinophils # (0.04-0.35) X 10*3/uL BUN (9.0-27.0) mg/dL Creatinine (0.6-1.5) mg/dL Est GFR (CKD-EPI)AfAm (60.0-200.0) Est GFR (CKD-EPI)NonAf (60.0-200.0) POC Glucose (mg/dL) 181 H (75-99) mg/dL Calcium (8.7-10.3) mg/dL Assessment and Plan (1) BMI 50.0-59.9, adult Current Visit: Yes Status: Acute Code(s): Z68.43 - BODY MASS INDEX [BMI] 50.0-59.9, ADULT SNOMED Code(s): 659802308 (2) Diabetes type 2, uncontrolled Current Visit: Yes Status: Acute Code(s): E11.65 - TYPE 2 DIABETES MELLITUS WITH HYPERGLYCEMIA SNOMED Code(s): 738413738 (3) Hypertensive heart disease Current Visit: Yes Status: Acute Code(s): I11.9 - HYPERTENSIVE HEART DISEASE WITHOUT HEART FAILURE SNOMED Code(s): 73794315 (4) Morbid (severe) obesity due to excess calories Current Visit: Yes Status: Acute Code(s): E66.01 - MORBID (SEVERE) OBESITY DUE TO EXCESS CALORIES SNOMED Code(s): 515237279
[2020-05-20 10:43] LABS: Basophils # (A) 0.01 X 10*3/uL (0.00-0.10); Basophils % (A) 0.1 %; Eosinophils # (A) 0 X 10*3/uL (0.04-0.35); Eosinophils % (A) 0 %; HCT 27.2 % (37.2-46.3); HGB 8.3 g/dL (12.0-15.0); Lymphocytes # (A) 0.99 X 10*3/uL (0.90-5.00); Lymphocytes % (A) 11.2 %; MCH 27.8 pg (27.0-32.0); MCHC 30.5 g/dL (32.0-37.0); Mean Platelet Volume 10.6 fL (9.5-12.2); Monocytes % (A) 5.6 %; Neutrophils # (A) 7.19 X 10*3/uL (1.80-7.70); Neutrophils % (A) 81.1 %; Platelet Count 311 X 10*3/uL (140-440); RBC 2.99 X 10*6/uL (4.10-5.20); RDW 13.9 % (11.5-14.5); WBC 8.87 X 10*3/uL (4.50-10.00)
[2020-05-20 11:17] LABS: African American GFR (CKD) 85.8 (60.0-200.0); Anion Gap 8.6 mmol/L (4.00-12.00); BUN/Creat Ratio 16.67 Ratio (12.00-20.00); Calcium 8.2 mg/dL (8.7-10.3); Carbon Dioxide 24.4 mmol/L (21.6-31.8); Potassium 3.9 mmol/L (3.5-5.5)
[2020-05-20 11:22] LABS: Glucose,Whole Blood 207 mg/dL (75-99)
--- NOTE | 2020-05-20 11:52 | P.DS ---
Providers Date of admission: 05/18/20 08:38 Expected date of discharge: 05/20/20 Attending physician: Jaja Ga Primary care physician: Stated None - Discharge Diagnosis(es) (1) BMI 50.0-59.9, adult Current Visit: Yes Status: Acute (2) Diabetes type 2, uncontrolled Current Visit: Yes Status: Acute (3) Hypertensive heart disease Current Visit: Yes Status: Acute (4) Morbid (severe) obesity due to excess calories Current Visit: Yes Status: Acute (5) Dehydration Current Visit: Yes Status: Acute (6) Acute kidney injury (PINEDA) with acute tubular necrosis (ATN) Current Visit: Yes Status: Acute (7) Hypokalemia Current Visit: Yes Status: Acute Hospital Course: POSTOPERATIVE DIAGNOSES: 1. Morbid obesity due to excess calories 2. Body mass index of 50.6 3. Diabetes type II, poorly controlled 4. Hypertensive heart disease 5. Anxiety disorder 6. Psychosis 7. Depressive disorder 8. PTSD 9. Elevated liver enxymes 10. Hypercholesterolemia 11. Hypertriglyceridemia 12. Vitamin D deficiency 13. ZInc deficiency 14. Dietary surveillance and counseling. 15. Mild hepatomegaly with fatty liver disease COURSE: Leonie Wallace is a 49-year-old female with lifelong morbid obesity. As a results of her morbid obesity, she has developed diabetes type II and hypertensive heart disease. She at the sleeve gastrectomy, 05/18/2020. Preoperatively she presented with severe hypokalemia due to overzealous diuretic use for hypertension. Her potassium was corrected prior to surgery. Postop, creatinine increased due to dehydration including acute tubular necrosis with acute kidney injury that resolved with IV fluids for dehydration. Prior to discharge, she was tolerating diet and passing flatus. Pain was controlled. Follow-up in the bariatric center in 3 days described Procedures: OPERATION: 1. Robotic assisted daVinci Xi laparoscopic sleeve gastrectomy with 40-Portuguese bougie, multiport. 2. Intraoperative esophagogastroduodenoscopy. ANESTHESIA: Gen. local anesthetic ESTIMATED BLOOD LOSS: 5 mL SPECIMENS REMOVED: Sleeve gastrectomy COMPLICATIONS: None. FINDINGS: 1. Negative intraoperative esophagogastrojejunoscopy leak test. 2. Mild hepatomegaly with fatty liver disease and no large hiatus hernia. 3. Total of 6 staplers used including 1 - 60 mm black robot patrick and 5 - 60 mm green robot loads used to create the gastric sleeve. 4. Sleeve gastrectomy, 28 x 4 cm Patient Condition at Discharge: Stable Plan - Discharge Summary Discharge Rx Participant: Yes New Discharge Prescriptions: New bisacodyL [Dulcolax] 5 mg PO DAILY PRN #10 tablet. PRN Reason: Constipation Simethicone 40 mg/0.6 ml Drops [Mylicon Drops] 40 mg PO PCHS PRN #30 ml PRN Reason: Gas Omeprazole [PriLOSEC] 40 mg PO DAILY #30 capsule. Ondansetron Odt [Zofran Odt] 4 mg PO Q8HR PRN #9 tab PRN Reason: Nausea Acetaminophen Oral Susp [Tylenol Oral Susp] 500 mg PO Q4-6H PRN #400 ml PRN Reason: Pain Continue Citalopram Hydrobromide [CeleXA] 40 mg PO DAILY #15 tab clonazePAM [KlonoPIN] 0.5 mg PO TID PRN PRN Reason: Anxiety traZODone HCL [Desyrel] 100 mg PO DAILY@2000 lamoTRIgine [LaMICtal] 100 mg PO DAILY lamoTRIgine [LaMICtal] 200 mg PO HS Brexpiprazole [Rexulti] 2.5 mg PO DAILY Discontinued Tolterodine Tartrate [Tolterodine Tartrate ER] 2 mg PO DAILY Celecoxib [CeleBREX] 200 mg PO DAILY Pioglitazone [Actos] 30 mg PO DAILY Chlorthalidone 25 mg PO DAILY glipiZIDE [Glucotrol] 10 mg PO BID Ergocalciferol [Vitamin D2 (DRISDOL)] 50,000 unit PO Q7D #30 cap Calcium Citrate 500 mg PO TID Multivitamins, Thera [Multivitamin (formulary)] 1 tab PO DAILY Biotin (Unknown Dose) 1 tab PO DAILY Discharge Medication List Citalopram Hydrobromide [CeleXA] 40 mg PO DAILY #15 tab 04/24/15 [Rx] Brexpiprazole [Rexulti] 2.5 mg PO DAILY 01/22/20 [History] clonazePAM [KlonoPIN] 0.5 mg PO TID PRN 01/22/20 [History] lamoTRIgine [LaMICtal] 100 mg PO DAILY 01/22/20 [History] lamoTRIgine [LaMICtal] 200 mg PO HS 10/28/20 [History] traZODone HCL [Desyrel] 100 mg PO DAILY@199901/22/20 [History] Acetaminophen Oral Susp [Tylenol Oral Susp] 500 mg PO Q4-6H PRN #400 ml 05/20/20 [Rx] Omeprazole [PriLOSEC] 40 mg PO DAILY #30 capsule. 05/20/20 [Rx] Ondansetron Odt [Zofran Odt] 4 mg PO Q8HR PRN #9 tab 05/20/20 [Rx] Simethicone 40 mg/0.6 ml Drops [Mylicon Drops] 40 mg PO PCHS PRN #30 ml 05/20/20 [Rx] bisacodyL [Dulcolax] 5 mg PO DAILY PRN #10 tablet. 05/20/20 [Rx] [facility]Ref[facility] [place] [place] [facility] [place] 05/22/20 9:00 am Patient Instructions/Handouts: Nutrition after Bariatric Surgery (DC), Laparoscopic Sleeve Gastrectomy (DC) Activity/Diet/Wound Care/Special Instructions: Liquid diet only for 2 weeks until June 01 No lifting over 4 pounds in 4 weeks, June 15July Shower. No soaking in bath tubs, until june 01 Please notify your surgeon if you develop nausea and vomiting including new onset of abdominal pain. Continue to use incentive spirometry to prevent pneumonias. Please continue to ambulate at home to prevent blood clots in legs. Check her blood sugars regularly. You have new prescriptions at your local pharmacy. Follow-up at the bariatric center. May shower. Dressings to be discontinued by surgeon in the office. Drink 64 oz of fluid daily. Start protein shakes on . Notify bariatric center for temp over 101.0, increased pain, drainage from incisions. No straws or carbonated beverages. Liquid diet only. Sugar content should be less than 6 g to avoid dumping syndrome. Take MOM for constipation. CRUSH, OPEN, OR CUT TABLETS LARGER THAN A SIZE OF A TIC TAC Discharge Disposition: HOME SELF-CARE
== END 2020-05-20 14:30 | disposition home or self-care (01) | DRG 619 ==
LOC: 2ORMAIN 08:38 → 4SSUR 12:28
PROVIDERS: ADMIT Surgery Plastic and Reconstructive Surgery; ATTEND Surgery Plastic and Reconstructive Surgery
PROC: 8E0W4CZ Robotic Assisted Procedure of Trunk Region, Percutaneous Endoscopic Approach (ICD-10-PCS; 2020-05-18)
PROC: 0DJ08ZZ Inspection of Upper Intestinal Tract, Via Natural or Artificial Opening Endoscopic (ICD-10-PCS; 2020-05-18)
PROC: 0DB64Z3 Excision of Stomach, Percutaneous Endoscopic Approach, Vertical (ICD-10-PCS; principal; 2020-05-18 10:10)
DX: E66.01 Morbid (severe) obesity due to excess calories (principal); N17.0 Acute kidney failure with tubular necrosis; F29 Unspecified psychosis not due to a substance or known physiological condition; I11.9 Hypertensive heart disease without heart failure; K76.0 Fatty (change of) liver, not elsewhere classified; Z68.43 Body mass index [BMI] 50.0-59.9, adult; E11.65 Type 2 diabetes mellitus with hyperglycemia; F43.10 Post-traumatic stress disorder, unspecified; F41.9 Anxiety disorder, unspecified; F32.9 Major depressive disorder, single episode, unspecified; E78.00 Pure hypercholesterolemia, unspecified; E78.1 Pure hyperglyceridemia; E55.9 Vitamin D deficiency, unspecified; E60 Dietary zinc deficiency; R33.9 Retention of urine, unspecified; E87.6 Hypokalemia; G47.30 Sleep apnea, unspecified; K21.9 Gastro-esophageal reflux disease without esophagitis; T44.3X5A Adverse effect of other parasympatholytics [anticholinergics and antimuscarinics] and spasmolytics, initial encounter; E86.0 Dehydration; Z71.3 Dietary counseling and surveillance; Z90.710 Acquired absence of both cervix and uterus; Z90.49 Acquired absence of other specified parts of digestive tract; Z98.890 Other specified postprocedural states; Z79.1 Long term (current) use of non-steroidal anti-inflammatories (NSAID); Z79.84 Long term (current) use of oral hypoglycemic drugs; Z79.899 Other long term (current) drug therapy; Z91.048 Other nonmedicinal substance allergy status; Z87.891 Personal history of nicotine dependence; Z88.1 Allergy status to other antibiotic agents; Z91.040 Latex allergy status; Z88.2 Allergy status to sulfonamides; Z82.49 Family history of ischemic heart disease and other diseases of the circulatory system; Z83.3 Family history of diabetes mellitus; Z82.61 Family history of arthritis
CPT/HCPCS: 36410; 64461; 74240; 76937; 80048; 80051; 80053; 82310; 82565; 83036; 83735; 84100; 84132; 84520; 85025; 86850; 86900; 86901; 88307; 94640; 94760; 94762

== ENCOUNTER → 2020-05-22 | Outpatient (CLI) | payer BC, OTHER ==
[2020-05-22 11:12] LABS: Basophils # (A) 0.05 X 10*3/uL (0.00-0.10); Basophils % (A) 0.5 %; Eosinophils # (A) 0.27 X 10*3/uL (0.04-0.35); Eosinophils % (A) 2.9 %; HGB 9.3 g/dL (12.0-15.0); Lymphocytes # (A) 2.82 X 10*3/uL (0.90-5.00); Lymphocytes % (A) 30.7 %; MCH 27.7 pg (27.0-32.0); MCV 89.3 fL (80.0-97.0); Mean Platelet Volume 10.4 fL (9.5-12.2); Monocytes # (A) 0.64 X 10*3/uL (0.20-1.00); Neutrophils % (A) 57.6 %; Platelet Count 375 X 10*3/uL (140-440); RBC 3.36 X 10*6/uL (4.10-5.20); RDW 13.9 % (11.5-14.5)
[2020-05-22 18:26] LABS: African American GFR (CKD) 85.8 (60.0-200.0); BUN/Creat Ratio 17.78 Ratio (12.00-20.00); Potassium 3.4 mmol/L (3.5-5.5)
== END | disposition home or self-care (01) ==
LOC: LABWHC1 08:09
PROVIDERS: ATTEND Surgery Plastic and Reconstructive Surgery
DX: E87.6 Hypokalemia (principal)
CPT/HCPCS: 36415; 80048; 85025

== ENCOUNTER → 2020-05-22 | Outpatient (CLI) | payer BC, OTHER ==
[2020-05-22 09:32] VITALS: BP 114/71; PULSE 76; RESP 16; TEMP 98.2; BMI 49.5
--- NOTE | 2020-05-22 11:06 | P.PN ---
Subjective Progress Note Date: 05/22/20 DATE OF SERVICE: 05/22/2020 CHIEF COMPLAINT: Morbid obesity HISTORY OF PRESENT ILLNESS: Leonie Wallace is a 49-year-old female status post sleeve gastrectomy, 05/18/2020. She is 1 week out. She has moderate bruising along the abdominal wall at least 20 cm. Denies any specific abdominal pain. Her pain is well-controlled. She is passing flatus. She denies any blood in stools. She has expected mild dysphagia with liquids. She has dehydration. At height of 5 feet 1 inches, her ideal body weight is 131 pounds. Her highest weight is 267 pounds, BMI 50.6. Today, she comes in 261 pounds from 267 pounds. She has lost 6 pounds in 2 weeks. Her body mass index is 49.5. Lifetime weight loss is 6 pounds. Percent excess weight loss is 4%. She is 130 pounds overweight. PHYSICAL EXAM: VITAL SIGNS: Height 5 foot 1 inches, weight 261 pounds. BMI 49.5 Vital Signs Temp 98.2 F 05/22/20 09:30 Pulse 76 05/22/20 09:30 Resp 16 05/22/20 09:30 BP 114/71 05/22/20 09:30 Pulse Ox GENERAL: Well-developed in no acute distress. HEENT: No scleral icterus. Extraocular movements grossly intact. Hears conversational speech. No nasal drainage. NECK: Supple without lymphadenopathy. CHEST: Nonlabored respirations with equal bilateral excursions. CARDIOVASCULAR: Regular rate and regular rhythm. Distal 2+ pulses. ABDOMEN: Incisions are clean, dry and intact. Has abdominal wall ecchymosis over 20 cm along lower abdomen. MUSCULOSKELETAL: No clubbing, cyanosis. NEURO: No focal or lateralizing signs. Cranial nerves 2 through 12 grossly within normal limits. PSYCH: Appropriate affect. Alert and oriented to person, place and time. SKIN: Good skin turgor. Well perfused. ASSESSMENT: 1. Morbid obesity due to excess calories 2. Body mass index of 50.6 3. Diabetes type II, poorly controlled 4. Hypertensive heart disease 5. Anxiety disorder 6. Psychosis 7. Depressive disorder 8. PTSD 9. Elevated liver enxymes 10. Hypercholesterolemia 11. Hypertriglyceridemia 12. Vitamin D deficiency 13. ZInc deficiency 14. Dietary surveillance and counseling. 15. Status post sleeve gastrectomy PLAN: 1. Recommend follow-up in 1 week. 2. Recommend IV fluid hydration. 3. Recommend CBC and may need iron infusions. Objective - Vital Signs Vital signs: Vital Signs Temp 98.2 F 05/22/20 09:30 Pulse 76 05/22/20 09:30 Resp 16 05/22/20 09:30 BP 114/71 05/22/20 09:30 Pulse Ox Intake & Output 05/21/20 05/22/20 05/22/20 18:59 06:59 18:59 Weight 118.841 kg
== END | disposition home or self-care (01) ==
LOC: BARWHC3 08:30
PROVIDERS: ATTEND Surgery Plastic and Reconstructive Surgery
DX: E66.01 Morbid (severe) obesity due to excess calories (principal); Z68.42 Body mass index [BMI] 45.0-49.9, adult; E11.9 Type 2 diabetes mellitus without complications; I11.9 Hypertensive heart disease without heart failure; F41.9 Anxiety disorder, unspecified; F32.9 Major depressive disorder, single episode, unspecified; E55.9 Vitamin D deficiency, unspecified; E60 Dietary zinc deficiency; F43.10 Post-traumatic stress disorder, unspecified; E78.00 Pure hypercholesterolemia, unspecified; E78.1 Pure hyperglyceridemia; Z71.3 Dietary counseling and surveillance; Z98.84 Bariatric surgery status; F29 Unspecified psychosis not due to a substance or known physiological condition
CPT/HCPCS: 99211

== ENCOUNTER → 2020-05-27 | Outpatient (CLI) | payer BC, OTHER ==
[2020-05-27 13:27] VITALS: BP 125/79; PULSE 111; RESP 16; TEMP 98.1
--- NOTE | 2020-05-27 14:18 | P.PN ---
Subjective Progress Note Date: 05/27/20 DATE OF SERVICE: 05/27/2020 CHIEF COMPLAINT: Status post sleeve gastrectomy HISTORY OF PRESENT ILLNESS: Leonie Wallace is a 49-year-old female status post sleeve gastrectomy, 05/18/2020. She is 2 weeks out. She had abdominal bruising. She is doing better. She is not taking enough protein or fluid. She has thrush. At height of 5 feet 1 inches, her ideal body weight is 131 pounds. Her highest weight is 267 pounds, BMI 50.6. Today, she comes in 252 pounds from 261 pounds 1 week ago. She has lost 9 pounds in 1 week. Her body mass index is 47.8. Lifetime weight loss is 15 pounds. Percent excess weight loss is 11%. She is 121 pounds overweight. PHYSICAL EXAM: VITAL SIGNS: Height 5 foot 1 inches, weight 252 pounds. BMI 47.8 Vital Signs Temp 98.1 F 05/27/20 13:24 Pulse 111 H 05/27/20 13:24 Resp 16 05/27/20 13:24 BP 125/79 05/27/20 13:24 Pulse Ox GENERAL: Well-developed in no acute distress. HEENT: No scleral icterus. Extraocular movements grossly intact. Hears conversational speech. No nasal drainage. Has white crusting of the tongue NECK: Supple without lymphadenopathy. CHEST: Nonlabored respirations with equal bilateral excursions. CARDIOVASCULAR: Tachycardic. Distal 2+ pulses. ABDOMEN: Incisions are granulated. No infection. MUSCULOSKELETAL: No clubbing, cyanosis. NEURO: No focal or lateralizing signs. Cranial nerves 2 through 12 grossly within normal limits. PSYCH: Appropriate affect. Alert and oriented to person, place and time. SKIN: Good skin turgor. Well perfused. LABS: Reviewed up from 9.6 to 11.8 ASSESSMENT: 1. Morbid obesity due to excess calories 2. Body mass index of 50.6 to 47.8 3. Diabetes type II, poorly controlled 4. Hypertensive heart disease 5. Anxiety disorder 6. Psychosis 7. Depressive disorder 8. PTSD 9. Elevated liver enxymes 10. Hypercholesterolemia 11. Hypertriglyceridemia 12. Vitamin D deficiency 13. ZInc deficiency 14. Dietary surveillance and counseling. 15. Status post sleeve gastrectomy 16. Thrush PLAN: 1. Recommend iron infusion. 2. She is doing better. 3. Increase protein intake over 75 grams daily. 4. Recommend Nystatin for thrush. Objective - Vital Signs Vital signs: Vital Signs Temp 98.1 F 05/27/20 13:24 Pulse 111 H 05/27/20 13:24 Resp 16 05/27/20 13:24 BP 125/79 05/27/20 13:24 Pulse Ox
[2020-05-27 15:57] VITALS: BMI 47.7
== END ==
LOC: BARWHC3 12:15
PROVIDERS: ATTEND Surgery Plastic and Reconstructive Surgery
DX: E66.01 Morbid (severe) obesity due to excess calories (principal); Z68.42 Body mass index [BMI] 45.0-49.9, adult; Z98.84 Bariatric surgery status; E11.9 Type 2 diabetes mellitus without complications; I11.9 Hypertensive heart disease without heart failure; E55.9 Vitamin D deficiency, unspecified; F32.9 Major depressive disorder, single episode, unspecified; F43.10 Post-traumatic stress disorder, unspecified; F29 Unspecified psychosis not due to a substance or known physiological condition; E78.00 Pure hypercholesterolemia, unspecified; E78.1 Pure hyperglyceridemia; E60 Dietary zinc deficiency; B37.9 Candidiasis, unspecified; Z71.3 Dietary counseling and surveillance; F41.9 Anxiety disorder, unspecified
CPT/HCPCS: 97803; 99211

== ENCOUNTER → 2020-06-17 | Outpatient (CLI) | payer BC, OTHER ==
[~2020-06-17] MED LIST changes: -ACETAMINOPHEN TAB 500 MG TAB PO STA; -CHLORHEXIDINE GLUCONATE 15 ML CUP MUCOUS MEM PRN; -DEXAMETHASONE SOD PHOSPHATE 4 MG/ML 1 ML VIAL IV ONE; -ENOXAPARIN 40 MG/0.4 ML SYRINGE SQ PRN; -GABAPENTIN 300 MG CAP PO STA; -LIDOCAINE 1% (10MG/ML) FOR IV START INTRADERMA PRN; -MELOXICAM 7.5 MG TAB PO PRN; -ONDANSETRON 4 MG/2 ML VIAL IVP ONE; -PANTOPRAZOLE 40 MG/10 ML VIAL IVP PRN; -SCOPOLAMINE 1.5MG/72HR PATCH TRANSDERM ONE; -SCOPOLAMINE 1.5MG/72HR PATCH TRANSDERM STA; +SODIUM CHLORIDE 0.9% 500 ML 500 ML in EMPTY BAG 1 BAG IV PRN; -ceFAZolin 3 GM in SODIUM CHLORIDE 0.9% 100 ML IVPB PRN
[2020-06-17 11:03] VITALS: BP 107/69; PULSE 82; RESP 16; TEMP 98
[2020-06-17] MEDS: SODIUM CHLORIDE 0.9% 1,000 ML IV SCH ×2 (11:04→12:14)
== END ==
LOC: PROCWHC3 10:47
PROVIDERS: ATTEND Surgery Plastic and Reconstructive Surgery
DX: E86.0 Dehydration (principal)
CPT/HCPCS: 96360; 96361

== ENCOUNTER → 2020-06-17 | Outpatient (CLI) | payer BC, OTHER ==
[2020-06-17 13:34] VITALS: BP 107/69; PULSE 82; RESP 16; TEMP 98; BMI 45.3
--- NOTE | 2020-06-17 14:13 | P.PN ---
Subjective Progress Note Date: 06/17/20 She reports pressure along the chest. She reports heaviness at the epigastrium. She received fluids. She lost 38 pounds but 20 pounds in 1 month. No restrictions on activity. Take MVI. She is walking regularly. [employer] people for [employer] food. Fluids advised. Acid reflux medications. She is off hypertension and blood sugar medication. At home BSG 121 to 130. Recommend labs. No straws. Follow up in July, 3 months. Still has resolving bruising on abdomen. Objective - Vital Signs Vital signs: Vital Signs Temp 98 F 06/17/20 13:32 Pulse 82 06/17/20 13:32 Resp 16 06/17/20 13:32 BP 107/69 06/17/20 13:32 Pulse Ox Intake & Output 06/16/20 06/17/20 06/17/20 18:59 06:59 18:59 Weight 109.004 kg
[2020-06-17 15:15] LABS: HCT 38.4 % (34.0-46.0); HGB 12.1 gm/dL (11.4-16.0); Hypochromasia Slight; MCH 27.9 pg (25.0-35.0); MCHC 31.5 g/dL (31.0-37.0); MCV 88.5 fL (80.0-100.0); Mean Platelet Volume 7.9; Platelet Count 242 k/uL (150-450); RBC 4.34 m/uL (3.80-5.40); RDW 14.9 % (11.5-15.5); WBC 5.5 k/uL (3.8-10.6)
[2020-06-17 21:09] LABS: Hemoglobin A1C 5.5 % (4.0-6.0)
[2020-06-18 03:41] LABS: INR 1.04 (0.90-1.11); Partial Thromboplastin Time 28.6 sec (23.5-31.0); Prothrombin Time 11.3 sec (9.9-11.9)
[2020-06-18 05:14] LABS: % Iron Saturation 25.24 (12.00-45.00); African American GFR (CKD) 98.9 (60.0-200.0); Albumin 3.9 g/dL (3.80-4.90); Albumin/Globulin Ratio 1.7 (1.60-3.17); Anion Gap 15.3 mmol/L (4.00-12.00); BUN/Creat Ratio 12.5 Ratio (12.00-20.00); Calcium 8.5 mg/dL (8.7-10.3); Carbon Dioxide 18.7 mmol/L (21.6-31.8); Chol/HDL Ratio 4.46; Globulin 2.3 g/dL (1.6-3.3); LDL Cholesterol,Calculated 88.4 mg/dL (0.0-131.0); Magnesium 1.6 mg/dL (1.5-2.4); Non-African American GFR(CKD) 85.4 (60.0-200.0); Phosphorus 3.3 mg/dL (2.4-5.1); Potassium 3.5 mmol/L (3.5-5.5); Total Bilirubin 0.4 mg/dL (0.3-1.2); Total Protein 6.2 g/dL (6.2-8.2); VLDL Calculation 32.6 mg/dL (5.00-40.00)
[2020-06-18 05:27] LABS: Folate, Serum 9.2 ng/mL
[2020-06-18 05:30] LABS: Ferritin 881.1 ng/mL (10.0-291.0)
[2020-06-18 13:13] LABS: Zinc, Serum 94 ug/dL (60-130)
[2020-06-19 08:35] LABS: Vit B1(Thiamine) 34 ug/L (38-122)
[2020-06-19 08:36] LABS: Vitamin A 21 ug/dL (38-106)
[2020-06-21 17:29] LABS: Selenium 138 mcg/L (63-160)
== END ==
LOC: BARWHC3 13:23
PROVIDERS: ATTEND Surgery Plastic and Reconstructive Surgery
DX: E66.01 Morbid (severe) obesity due to excess calories (principal); E89.1 Postprocedural hypoinsulinemia; D50.8 Other iron deficiency anemias; E44.0 Moderate protein-calorie malnutrition; E55.9 Vitamin D deficiency, unspecified; K74.1 Hepatic sclerosis; N19 Unspecified kidney failure; K50.90 Crohn's disease, unspecified, without complications; K21.9 Gastro-esophageal reflux disease without esophagitis; I10 Essential (primary) hypertension; E11.9 Type 2 diabetes mellitus without complications; Z68.42 Body mass index [BMI] 45.0-49.9, adult; Z98.84 Bariatric surgery status; Z79.899 Other long term (current) drug therapy
CPT/HCPCS: 36415; 80053; 80061; 82306; 82525; 82607; 82728; 82746; 83036; 83540; 83550; 83735; 83970; 84100; 84134; 84255; 84425; 84443; 84590; 84630; 85027; 85610; 85730; 97803; 99211

== ENCOUNTER → 2020-08-12 | Outpatient (CLI) | payer BC, OTHER ==
[2020-08-12 15:46] VITALS: BP 112/74; PULSE 84; RESP 18; TEMP 98.1; BMI 41.0
--- NOTE | 2020-08-12 15:49 | P.PN ---
Subjective Progress Note Date: 08/12/20 DATE OF SERVICE: 08/12/2020 CHIEF COMPLAINT: Status post sleeve gastrectomy HISTORY OF PRESENT ILLNESS: Leonie Wallace is a 49-year-old female status post sleeve gastrectomy, 05/18/2020. She is 3 months out. She reports no abdominal pain. She has great energy with her 50 pound weight loss. She reports new panniculitis. She has supportive family. She has improved back, knee, joint pain. At height of 5 feet 1 inches, her ideal body weight is 131 pounds. Her highest weight is 267 pounds, BMI 50.6. Today, she comes in 217 pounds from 240 pounds, over 1 month ago. She has lost 23 pounds in 6 weeks. Her body mass index is 41.0. Lifetime weight loss is 50 pounds. Percent excess weight loss is 37 %. She is 86 pounds overweight. PHYSICAL EXAM: VITAL SIGNS: Height 5 foot 1 inches, weight 217 pounds. BMI 41.0 Vital Signs Temp 98.1 F 08/12/20 15:36 Pulse 84 08/12/20 15:36 Resp 18 08/12/20 15:36 BP 112/74 08/12/20 15:36 Pulse Ox GENERAL: Well-developed in no acute distress. HEENT: No scleral icterus. Extraocular movements grossly intact. Hears conversational speech. No nasal drainage. NECK: Supple without lymphadenopathy. CHEST: Nonlabored respirations with equal bilateral excursions. CARDIOVASCULAR: Regular rate. Regular rhythm. ABDOMEN: Nontender. Non-distended. MUSCULOSKELETAL: No clubbing, cyanosis. NEURO: No focal or lateralizing signs. Cranial nerves 2 through 12 grossly within normal limits. PSYCH: Appropriate affect. Alert and oriented to person, place and time. SKIN: Good skin turgor. Well perfused. LABS: Vitamin A is low and thiamine is low ASSESSMENT: 1. Morbid obesity due to excess calories 2. Body mass index of 50.6 to 41.0 3. Diabetes type II, poorly controlled 4. Hypertensive heart disease 5. Anxiety disorder 6. Psychosis 7. Depressive disorder 8. PTSD 9. Elevated liver enxymes 10. Hypercholesterolemia 11. Hypertriglyceridemia 12. Vitamin D deficiency 13. ZInc deficiency 14. Dietary surveillance and counseling. 15. Status post sleeve gastrectomy 16. Vitamin A deficiency 17. Vitamin B1 (thiamine) deficiency. 18. Panniculitis PLAN: 1. She has panniculitis. Recommend Nystatin powder prescribed. 2. She has new thiamine deficiency. Recommend thiamine infusion. Objective - Vital Signs Vital signs: Vital Signs Temp 98.1 F 08/12/20 15:36 Pulse 84 08/12/20 15:36 Resp 18 08/12/20 15:36 BP 112/74 08/12/20 15:36 Pulse Ox Intake & Output 08/11/20 08/12/20 08/12/20 18:59 06:59 18:59 Weight 98.43 kg - Labs CBC & Chem 7: 08/12/20 16:15 08/12/20 16:15
[2020-08-12 17:22] LABS: HCT 41.9 % (34.0-46.0); HGB 14.2 gm/dL (11.4-16.0); MCH 28.7 pg (25.0-35.0); MCHC 33.8 g/dL (31.0-37.0); Mean Platelet Volume 7.7; Partial Thromboplastin Time 24.6 sec (22.0-30.0); Platelet Count 282 k/uL (150-450); Prothrombin Time 10.7 sec (9.0-12.0); RBC 4.93 m/uL (3.80-5.40); RDW 13.6 % (11.5-15.5); WBC 7.5 k/uL (3.8-10.6)
[2020-08-13 04:13] LABS: Estimated Average Glucose 111.15
[2020-08-13 04:27] LABS: % Iron Saturation 19.28 (12.00-45.00); African American GFR (CKD) 85.8 (60.0-200.0); Albumin 4.4 g/dL (3.80-4.90); Albumin/Globulin Ratio 1.63 (1.60-3.17); BUN/Creat Ratio 21.11 Ratio (12.00-20.00); Calcium 9.8 mg/dL (8.7-10.3); Chol/HDL Ratio 4.21; Globulin 2.7 g/dL (1.6-3.3); LDL Cholesterol,Calculated 113.6 mg/dL (0.0-131.0); Magnesium 1.8 mg/dL (1.5-2.4); Phosphorus 4.7 mg/dL (2.4-5.1); Total Bilirubin 0.5 mg/dL (0.3-1.2); Total Protein 7.1 g/dL (6.2-8.2); VLDL Calculation 37.4 mg/dL (5.00-40.00)
[2020-08-13 04:38] LABS: Folate, Serum 9.6 ng/mL
[2020-08-13 04:47] LABS: Ferritin 461.6 ng/mL (10.0-291.0)
[2020-08-13 14:46] LABS: Vitamin A 38 ug/dL (38-106)
[2020-08-13 15:07] LABS: Zinc, Serum 64 ug/dL (60-130)
[2020-08-14 06:55] LABS: Vit B1(Thiamine) 80 ug/L (38-122)
[2020-08-17 10:53] LABS: Selenium 116 mcg/L (63-160)
== END ==
LOC: BARWHC3 14:55
PROVIDERS: ATTEND Surgery Plastic and Reconstructive Surgery
DX: E66.01 Morbid (severe) obesity due to excess calories (principal); E89.1 Postprocedural hypoinsulinemia; D50.8 Other iron deficiency anemias; E44.0 Moderate protein-calorie malnutrition; E55.9 Vitamin D deficiency, unspecified; K74.1 Hepatic sclerosis; N19 Unspecified kidney failure; K50.90 Crohn's disease, unspecified, without complications; Z68.41 Body mass index [BMI] 40.0-44.9, adult; Z88.3 Allergy status to other anti-infective agents; Z88.1 Allergy status to other antibiotic agents; Z88.2 Allergy status to sulfonamides; Z91.040 Latex allergy status; Z91.048 Other nonmedicinal substance allergy status
CPT/HCPCS: 36415; 80053; 80061; 82306; 82525; 82607; 82728; 82746; 83036; 83540; 83550; 83735; 83970; 84100; 84134; 84255; 84425; 84443; 84590; 84630; 85027; 85610; 85730; 97803; 99211

== ENCOUNTER → 2021-06-09 | Outpatient (CLI) | payer BC, OTHER ==
--- NOTE | 2021-06-09 16:41 | P.BASOAP ---
Subjective Progress Note Date: 06/09/21 DATE OF SERVICE: 06/09/2021 CHIEF COMPLAINT: Status post sleeve gastrectomy HISTORY OF PRESENT ILLNESS: Leonie Wallace is a 50-year-old female status post sleeve gastrectomy, 05/18/2020. She is over 1 year out. She comes in with weight gain. She is not keep a food journal. No reports of abdominal pain. No gastroesophageal reflux disease. At height of 5 feet 1 inches, her ideal body weight is 131 pounds. Her highest weight is 267 pounds, BMI 50.6. Today, she comes in 225 pounds from 211 pounds, 4 months ago. She has gained 14 pounds in 4 months. Her body mass index is 42.5 Lifetime weight loss is 42 pounds. Percent excess weight loss is 31 %. She is 94 pounds overweight. PHYSICAL EXAM: VITAL SIGNS: Height 5 foot 1 inches, weight 225 pounds. BMI 42.5 Vital Signs Temp 98.1 F 06/09/21 16:53 Pulse 77 06/09/21 16:53 Resp BP 135/90 06/09/21 16:53 Pulse Ox GENERAL: Well-developed in no acute distress. HEENT: No scleral icterus. Extraocular movements grossly intact. Hears conversational speech. No nasal drainage. NECK: Supple without lymphadenopathy. CHEST: Nonlabored respirations with equal bilateral excursions. CARDIOVASCULAR: Regular rate. Regular rhythm. ABDOMEN: Nontender. Non-distended. MUSCULOSKELETAL: No clubbing, cyanosis. NEURO: No focal or lateralizing signs. Cranial nerves 2 through 12 grossly within normal limits. PSYCH: Appropriate affect. Alert and oriented to person, place and time. SKIN: Good skin turgor. Well perfused. LABS: Reviewed. ASSESSMENT: 1. Morbid obesity due to excess calories 2. Body mass index of 50.6 to 42.5 3. Diabetes type II, poorly controlled 4. Hypertensive heart disease 5. Anxiety disorder 6. Psychosis 7. Depressive disorder 8. PTSD 9. Elevated liver enxymes 10. Hypercholesterolemia 11. Hypertriglyceridemia 12. Vitamin D deficiency 13. ZInc deficiency 14. Dietary surveillance and counseling. 15. Status post sleeve gastrectomy 16. Vitamin A deficiency 17. Vitamin B1 (thiamine) deficiency. 18. Panniculitis 19. Iron deficiency. PLAN: 1. She comes in with weight gain. Recommend carb master and other food diary journal advised. 2. Recommend bariatric labs with adjustment of thyroid. 3. Follow up in 1 month. Assessment/Plan Plan: Date: Initial Weight: 244.1 kg Initial BMI: Current Weight: Current BMI: Type of Surgery: Total Volume in Band: Previous Volume: Volume Removed: Volume Added: Band Size:
[2021-06-09 16:54] VITALS: BP 135/90; PULSE 77; TEMP 98.1; BMI 42.5
== END ==
LOC: BARWHC3 16:18
PROVIDERS: ATTEND Surgery Plastic and Reconstructive Surgery
DX: E66.01 Morbid (severe) obesity due to excess calories (principal); Z68.41 Body mass index [BMI] 40.0-44.9, adult; E11.9 Type 2 diabetes mellitus without complications; I11.9 Hypertensive heart disease without heart failure; F41.1 Generalized anxiety disorder; F29 Unspecified psychosis not due to a substance or known physiological condition; F32.A Depression, unspecified; R94.5 Abnormal results of liver function studies; F43.10 Post-traumatic stress disorder, unspecified; E78.00 Pure hypercholesterolemia, unspecified; E55.9 Vitamin D deficiency, unspecified; E60 Dietary zinc deficiency; Z71.3 Dietary counseling and surveillance; Z98.84 Bariatric surgery status; E50.9 Vitamin A deficiency, unspecified; M79.3 Panniculitis, unspecified; E61.1 Iron deficiency; E51.9 Thiamine deficiency, unspecified; Z88.1 Allergy status to other antibiotic agents; Z91.040 Latex allergy status; Z88.2 Allergy status to sulfonamides; Z91.048 Other nonmedicinal substance allergy status
CPT/HCPCS: 99211

== ENCOUNTER → 2021-06-11 | Outpatient (CLI) | payer BC, OTHER ==
[2021-06-11 16:48] LABS: INR 0.9 (<1.2); Partial Thromboplastin Time 22.7 sec (22.0-30.0); Prothrombin Time 9.6 sec (9.0-12.0)
[2021-06-12 01:14] LABS: HGB 12.9 g/dL (12.0-15.0); MCH 28.1 pg (27.0-32.0); MCHC 32.3 g/dL (32.0-37.0); MCV 87.1 fL (80.0-97.0); Mean Platelet Volume 10.5 fL (9.5-12.2); NRBC Per 100 WBC 0 /100 WBCS (0.0-0.0); Platelet Count 227 X 10*3/uL (140-440); RBC 4.59 X 10*6/uL (4.10-5.20); RDW 12.6 % (11.5-14.5); WBC 4.09 X 10*3/uL (4.50-10.00)
[2021-06-12 01:39] LABS: % Iron Saturation 22.78 (12.00-45.00); ALT 19 U/L (8-44); AST 16 U/L (13-35); African American GFR (CKD) 117.1 (60.0-200.0); Albumin 4.2 g/dL (3.8-4.9); Albumin/Globulin Ratio 1.63 (1.60-3.17); Alkaline Phosphatase 76 U/L (41-126); BUN/Creat Ratio 18.96 Ratio (12.00-20.00); Blood Urea Nitrogen 12.7 mg/dL (9.0-27.0); Calcium 9.2 mg/dL (8.7-10.3); Carbon Dioxide 24.8 mmol/L (20.0-27.5); Chloride 103 mmol/L (96-109); Globulin 2.6 g/dL (1.6-3.3); Glucose 83 mg/dL (70-110); Iron 66 ug/dL (50-170); Magnesium 1.8 mg/dL (1.5-2.4); Non-African American GFR(CKD) 101.1 (60.0-200.0); Phosphorus 2.8 mg/dL (2.4-5.1); Potassium 3.8 mmol/L (3.5-5.5); Sodium 139 mmol/L (135-145); Total Bilirubin <0.15 mg/dL (0.30-1.20); Total Iron Binding Capacity 288 ug/dL (228-460); Total Protein 6.8 g/dL (6.2-8.2)
[2021-06-12 01:48] LABS: Chol/HDL Ratio 4.21 Ratio; LDL Cholesterol,Calculated 77.2 mg/dL (0.0-131.0); Prealbumin 26.7 mg/dL (18.0-42.0)
== END | disposition home or self-care (01) ==
LOC: LABPAT 15:55
PROVIDERS: ATTEND Surgery Plastic and Reconstructive Surgery
DX: E89.1 Postprocedural hypoinsulinemia (principal); E66.01 Morbid (severe) obesity due to excess calories; K91.2 Postsurgical malabsorption, not elsewhere classified; E44.0 Moderate protein-calorie malnutrition; E45 Retarded development following protein-calorie malnutrition; K74.1 Hepatic sclerosis; D50.8 Other iron deficiency anemias; N19 Unspecified kidney failure; K50.90 Crohn's disease, unspecified, without complications; T56.894A Toxic effect of other metals, undetermined, initial encounter
CPT/HCPCS: 80053; 80061; 82306; 82525; 82607; 82728; 82746; 83036; 83540; 83550; 83735; 83970; 84100; 84134; 84255; 84425; 84443; 84590; 84630; 85027; 85610; 85730

== ENCOUNTER → 2021-07-07 | Outpatient (CLI) | payer BC, OTHER ==
[2021-07-07 17:14] VITALS: BP 113/79; PULSE 79; RESP 12; TEMP 98; BMI 43.2
--- NOTE | 2021-07-07 17:52 | P.BASOAP ---
Subjective Progress Note Date: 07/07/21 DATE OF SERVICE: 07/07/2021 CHIEF COMPLAINT: Status post sleeve gastrectomy HISTORY OF PRESENT ILLNESS: Leonie Wallace is a 50-year-old female status post sleeve gastrectomy, 05/18/2020. She is over 1 year out. She reports weight gain. She reports low energy. She is not keeping a food journal. At height of 5 feet 1 inches, her ideal body weight is 131 pounds. Her highest weight is 267 pounds, BMI 50.6. Today, she comes in 229 pounds from 225 pounds, 1 months ago. She has gained 4 pounds in 1 month. Her body mass index is 43.3. Lifetime weight loss is 38 pounds. Percent excess weight loss is 28 %. She is 98 pounds overweight. PHYSICAL EXAM: VITAL SIGNS: Height 5 foot 1 inches, weight 229 pounds. BMI 43.3 Vital Signs Temp 98 F 07/07/21 16:14 Pulse 79 07/07/21 16:14 Resp 12 07/07/21 16:14 BP 113/79 07/07/21 16:14 Pulse Ox GENERAL: Well-developed in no acute distress. HEENT: No scleral icterus. Extraocular movements grossly intact. Hears conversational speech. No nasal drainage. NECK: Supple without lymphadenopathy. CHEST: Nonlabored respirations with equal bilateral excursions. CARDIOVASCULAR: Regular rate. Regular rhythm. ABDOMEN: Nontender. Non-distended. MUSCULOSKELETAL: No clubbing, cyanosis. NEURO: No focal or lateralizing signs. Cranial nerves 2 through 12 grossly within normal limits. PSYCH: Appropriate affect. Alert and oriented to person, place and time. SKIN: Good skin turgor. Well perfused. LABS: Reviewed. Hgb A1c is elevated from 5.7 to 6.2%. Triglycerides elevated. Zinc low. TSH 2.080 ASSESSMENT: 1. Morbid obesity due to excess calories 2. Body mass index of 50.6 to 43.3 3. Diabetes type II 4. Hypertensive heart disease 5. Anxiety disorder 6. Psychosis 7. Depressive disorder 8. PTSD 9. Elevated liver enxymes 10. Hypercholesterolemia 11. Hypertriglyceridemia 12. Vitamin D deficiency 13. ZInc deficiency 14. Dietary surveillance and counseling. 15. Status post sleeve gastrectomy 16. Vitamin A deficiency 17. Vitamin B1 (thiamine) deficiency. 18. Panniculitis 19. Iron deficiency. PLAN: 1. Recommend synthroid with adjustment of TSH below 1.0. 2. Recommend food diary journal. 3. Follow up 1 month Objective - Vital Signs Vital signs: Vital Signs Temp 98 F 07/07/21 16:14 Pulse 79 07/07/21 16:14 Resp 12 07/07/21 16:14 BP 113/79 07/07/21 16:14 Pulse Ox Intake & Output 07/06/21 07/07/21 07/07/21 18:59 06:59 18:59 Weight 103.873 kg Assessment/Plan Plan: Date: 07/07/21 Initial Weight: 244.1 kg Initial BMI: 101.7 Current Weight: 103.873 kg Current BMI: 43.2 Type of Surgery: Total Volume in Band: Previous Volume: Volume Removed: Volume Added: Band Size:
== END ==
LOC: BARWHC3 16:14
PROVIDERS: ATTEND Surgery Plastic and Reconstructive Surgery
DX: E66.01 Morbid (severe) obesity due to excess calories (principal); Z68.41 Body mass index [BMI] 40.0-44.9, adult; E11.9 Type 2 diabetes mellitus without complications; I11.9 Hypertensive heart disease without heart failure; F41.9 Anxiety disorder, unspecified; F29 Unspecified psychosis not due to a substance or known physiological condition; F32.A Depression, unspecified; F43.10 Post-traumatic stress disorder, unspecified; R94.5 Abnormal results of liver function studies; E78.00 Pure hypercholesterolemia, unspecified; E55.9 Vitamin D deficiency, unspecified; E60 Dietary zinc deficiency; Z71.3 Dietary counseling and surveillance; Z98.84 Bariatric surgery status; M79.3 Panniculitis, unspecified; E61.1 Iron deficiency; E51.9 Thiamine deficiency, unspecified; Z88.1 Allergy status to other antibiotic agents; Z91.040 Latex allergy status; Z91.048 Other nonmedicinal substance allergy status; Z88.2 Allergy status to sulfonamides
CPT/HCPCS: 99211

== ENCOUNTER → 2021-07-09 | Outpatient (CLI) | payer BC, OTHER | END | disposition home or self-care (01) | LOC: LABWHC1 11:21 | PROVIDERS: ATTEND Surgery Plastic and Reconstructive Surgery | DX: E03.9 Hypothyroidism, unspecified (principal) | CPT/HCPCS: 36415; 84443 ==

== ENCOUNTER → 2021-08-06 | Outpatient (CLI) | payer BC, OTHER | END | disposition home or self-care (01) | LOC: LABWHC1 15:38 | PROVIDERS: ATTEND Surgery Plastic and Reconstructive Surgery | DX: E03.9 Hypothyroidism, unspecified (principal) | CPT/HCPCS: 36415; 84443 ==

== ENCOUNTER → 2021-09-10 | Outpatient (CLI) | payer BC, OTHER ==
[2021-09-10 13:08] LABS: INR 0.9 (<1.2); Prothrombin Time 10.2 sec (9.0-12.0)
[2021-09-10 18:17] LABS: HCT 43.1 % (37.2-46.3); HGB 13.4 g/dL (12.0-15.0); MCH 27.3 pg (27.0-32.0); MCHC 31.1 g/dL (32.0-37.0); Mean Platelet Volume 10.7 fL (9.5-12.2); NRBC Per 100 WBC 0 /100 WBCS (0.0-0.0); Platelet Count 265 X 10*3/uL (140-440); WBC 7.12 X 10*3/uL (4.50-10.00)
[2021-09-10 21:10] LABS: Chol/HDL Ratio 4.01 Ratio; LDL Cholesterol,Calculated 125.5 mg/dL (0.0-131.0); Prealbumin 24.8 mg/dL (18.0-42.0)
[2021-09-10 21:45] LABS: % Iron Saturation 31.42 (12.00-45.00); ALT 24 U/L (8-44); AST 21 U/L (13-35); African American GFR (CKD) 84.2 (60.0-200.0); Albumin 4.1 g/dL (3.8-4.9); Albumin/Globulin Ratio 1.71 (1.60-3.17); Alkaline Phosphatase 60 U/L (41-126); BUN/Creat Ratio 13.09 Ratio (12.00-20.00); Blood Urea Nitrogen 11.9 mg/dL (9.0-27.0); Carbon Dioxide 22.3 mmol/L (20.0-27.5); Chloride 105 mmol/L (96-109); Globulin 2.4 g/dL (1.6-3.3); Glucose 127 mg/dL (70-110); Iron 95 ug/dL (50-170); Magnesium 1.8 mg/dL (1.5-2.4); Non-African American GFR(CKD) 72.6 (60.0-200.0); Phosphorus 3.6 mg/dL (2.4-5.1); Potassium 4.4 mmol/L (3.5-5.5); Sodium 139 mmol/L (135-145); Total Iron Binding Capacity 302 ug/dL (228-460); Total Protein 6.5 g/dL (6.2-8.2)
== END | disposition home or self-care (01) ==
LOC: LABWHC1 12:17
PROVIDERS: ATTEND Surgery Plastic and Reconstructive Surgery
DX: E89.1 Postprocedural hypoinsulinemia (principal); E66.01 Morbid (severe) obesity due to excess calories; D50.8 Other iron deficiency anemias; D50.9 Iron deficiency anemia, unspecified; K90.89 Other intestinal malabsorption; K90.9 Intestinal malabsorption, unspecified; K74.1 Hepatic sclerosis; N19 Unspecified kidney failure; T56.894A Toxic effect of other metals, undetermined, initial encounter; K50.90 Crohn's disease, unspecified, without complications
CPT/HCPCS: 36415; 80053; 80061; 82306; 82525; 82607; 82728; 82746; 83036; 83540; 83550; 83735; 83970; 84100; 84134; 84255; 84425; 84443; 84590; 84630; 85027; 85610; 85730

== ENCOUNTER → 2021-10-13 | Outpatient (CLI) | payer BC, OTHER ==
[2021-10-13 16:37] VITALS: BP 122/83; PULSE 86; TEMP 98.6; BMI 43.6
--- NOTE | 2021-10-13 17:21 | P.BASOAP ---
Subjective Progress Note Date: 10/13/21 DATE OF SERVICE: 10/13/2021 CHIEF COMPLAINT: Status post sleeve gastrectomy HISTORY OF PRESENT ILLNESS: Leonie Wallace is a 50-year-old female status post sleeve gastrectomy, 05/18/2020. She is over 1 year out. She brings in protein and food diary journal of 100 to 120 g daily. She has weight gain of 1 pound. She is eating breakfast. She started take a multivitamin. She has presence of elevated carbohydrates. Patient reports calories of 1400 daily. At height of 5 feet 1 inches, her ideal body weight is 131 pounds. Her highest weight is 267 pounds, BMI 50.6. Today, she comes in 231 pounds from 229 pounds, 1 months ago. She has gained 1 pounds in 1 month. Her body mass index is 43.6. Lifetime weight loss is 36 pounds. Lifetime percent excess weight loss is 27 %. She is 100 pounds overweight. PHYSICAL EXAM: VITAL SIGNS: Height 5 foot 1 inches, weight 231 pounds. BMI 43.6 Vital Signs Temp 98.6 F 10/13/21 16:32 Pulse 86 10/13/21 16:32 Resp BP 122/83 10/13/21 16:32 Pulse Ox FiO2 GENERAL: Well-developed in no acute distress. HEENT: No scleral icterus. Extraocular movements grossly intact. Hears conversational speech. No nasal drainage. NECK: Supple without lymphadenopathy. CHEST: Nonlabored respirations with equal bilateral excursions. CARDIOVASCULAR: Distal 2+ pulses. ABDOMEN: Nontender. Non-distended. MUSCULOSKELETAL: No clubbing, cyanosis. NEURO: No focal or lateralizing signs. Cranial nerves 2 through 12 grossly withi n normal limits. PSYCH: Appropriate affect. Alert and oriented to person, place and time. SKIN: Good skin turgor. Well perfused. LABS: Reviewed. ASSESSMENT: 1. Morbid obesity due to excess calories 2. Body mass index of 50.6 to 43.6 3. Diabetes type II 4. Hypertensive heart disease 5. Anxiety disorder 6. Psychosis 7. Depressive disorder 8. PTSD 9. Elevated liver enxymes 10. Hypercholesterolemia 11. Hypertriglyceridemia 12. Vitamin D deficiency 13. ZInc deficiency 14. Dietary surveillance and counseling. 15. Status post sleeve gastrectomy 16. Vitamin A deficiency 17. Vitamin B1 (thiamine) deficiency. 18. Panniculitis 19. Iron deficiency. PLAN: 1. Recommend decreased protein intake to 80 g daily. 2. Also recommend decreased caloric restriction of 800 to 1000 kcal daily. 3. Follow-up in 1 month with adjustments. Objective - Vital Signs Vital signs: Vital Signs Temp 98.6 F 10/13/21 16:32 Pulse 86 10/13/21 16:32 Resp BP 122/83 10/13/21 16:32 Pulse Ox FiO2 Intake & Output 10/12/21 10/13/21 10/13/21 18:59 06:59 18:59 Weight 104.78 kg Assessment/Plan Plan: Date: 10/13/21 Initial Weight: 244.1 kg Initial BMI: 101.7 Current Weight: 104.78 kg Current BMI: 43.6 Type of Surgery: Total Volume in Band: Previous Volume: Volume Removed: Volume Added: Band Size:
== END ==
LOC: BARWHC3 16:12
PROVIDERS: ATTEND Surgery Plastic and Reconstructive Surgery
DX: I11.9 Hypertensive heart disease without heart failure (principal); E11.9 Type 2 diabetes mellitus without complications; E66.01 Morbid (severe) obesity due to excess calories; Z68.41 Body mass index [BMI] 40.0-44.9, adult; Z88.1 Allergy status to other antibiotic agents; Z88.2 Allergy status to sulfonamides; Z91.041 Radiographic dye allergy status; Z91.048 Other nonmedicinal substance allergy status; F41.9 Anxiety disorder, unspecified; F29 Unspecified psychosis not due to a substance or known physiological condition; F32.A Depression, unspecified; F43.8 Other reactions to severe stress; R74.01 Elevation of levels of liver transaminase levels; E55.9 Vitamin D deficiency, unspecified; E78.00 Pure hypercholesterolemia, unspecified; E78.1 Pure hyperglyceridemia; Z71.3 Dietary counseling and surveillance; E60 Dietary zinc deficiency; Z98.84 Bariatric surgery status; D50.9 Iron deficiency anemia, unspecified; M79.3 Panniculitis, unspecified; E50.9 Vitamin A deficiency, unspecified; E51.9 Thiamine deficiency, unspecified
CPT/HCPCS: 99211

== ENCOUNTER → 2023-05-05 | Outpatient (CLI) | payer BC, OTHER ==
[2023-05-05 13:53] LABS: INR 0.9 (<1.2); Partial Thromboplastin Time 22.8 sec (22.0-30.0); Prothrombin Time 10.2 sec (10.0-12.5)
[2023-05-05 18:35] LABS: HCT 40.7 % (37.2-46.3); HGB 12.6 g/dL (12.0-15.0); MCV 90.4 FL (80.0-97.0); Mean Platelet Volume 10.4 FL (9.5-12.2); NRBC Per 100 WBC 0 X 10*3/uL (0.00-0.01); Platelet Count 282 X 10*3/uL (140-440); RDW 12.6 % (11.5-14.5); WBC 5.79 X 10*3/uL (4.50-10.00)
[2023-05-05 18:53] LABS: Prealbumin 23.3 mg/dL (18.0-42.0)
[2023-05-05 19:14] LABS: % Iron Saturation 25.52 (12.00-45.00); ALT 32 U/L (8-44); AST 23 U/L (13-35); Albumin/Globulin Ratio 1.67 Ratio (1.60-3.17); Alkaline Phosphatase 80 U/L (41-126); BUN/Creat Ratio 12.78 Ratio (12.00-20.00); Blood Urea Nitrogen 11.5 mg/dL (9.0-27.0); Calcium 9.4 mg/dL (8.7-10.3); Carbon Dioxide 23.3 mmol/L (21.6-31.8); Chloride 102 mmol/L (96-109); Chol/HDL Ratio 4.54 Ratio; Globulin 2.4 g/dL (1.6-3.3); Glucose 229 mg/dL (70-110); Iron 73 UG/DL (50-170); LDL Cholesterol,Calculated 113.2 mg/dL (0.0-131.0); Magnesium 1.9 mg/dL (1.5-2.4); Phosphorus 2.9 mg/dL (2.4-5.1); Potassium 4.3 mmol/L (3.5-5.5); Sodium 137 mmol/L (135-145); Total Bilirubin 0.3 mg/dL (0.3-1.2); Total Iron Binding Capacity 286 UG/DL (228-460); Total Protein 6.4 g/dL (6.2-8.2)
== END | disposition home or self-care (01) ==
LOC: LABPAT 13:03
PROVIDERS: ATTEND Surgery Plastic and Reconstructive Surgery
DX: E89.1 Postprocedural hypoinsulinemia (principal); E66.01 Morbid (severe) obesity due to excess calories; D50.8 Other iron deficiency anemias; K91.2 Postsurgical malabsorption, not elsewhere classified; E44.0 Moderate protein-calorie malnutrition; E44.1 Mild protein-calorie malnutrition; E45 Retarded development following protein-calorie malnutrition; E55.9 Vitamin D deficiency, unspecified; K74.1 Hepatic sclerosis; N19 Unspecified kidney failure; T56.894A Toxic effect of other metals, undetermined, initial encounter; K50.90 Crohn's disease, unspecified, without complications
CPT/HCPCS: 80053; 80061; 82306; 82525; 82607; 82728; 82746; 83036; 83540; 83550; 83735; 83970; 84100; 84134; 84255; 84425; 84443; 84590; 84630; 85027; 85610; 85730

== ENCOUNTER 2023-05-15 06:33 | Day surgery (SDC) | payer BC, OTHER ==
[2023-05-15] MEDS: LACTATED RINGERS 1,000 ML IV SCH (07:19)
[2023-05-15] MEDS: ONDANSETRON 4 MG/2 ML VIAL ONE (07:20)
[2023-05-15 07:26] LABS: Glucose,Whole Blood 167 mg/dL (70-110)
[2023-05-15] MEDS ORDERED: PROPOFOL 10 MG/ML 20 ML VIAL IV ONE (07:28)
[2023-05-15] MEDS ORDERED: fentaNYL (PF) 50 MCG/ML 2 ML AMP ONE (07:28)
[2023-05-15] MEDS ORDERED: MIDAZOLAM 2 MG/2 ML VIAL ONE (07:28)
[2023-05-15] MEDS ORDERED: LIDOCAINE 1% INJ 10MG/ML (20 ML MDV) ONE (07:28)
[2023-05-15 07:30] VITALS: TEMP 97
--- NOTE | 2023-05-15 07:30 | P.GSHP ---
History of Present Illness H&P Date: 05/15/23 CHIEF COMPLAINT: GERD and colon screen HISTORY OF PRESENT ILLNESS: The patient is a 52-year-old female who presents with gastroesophageal reflux disease and need for colon screen. Upper and lower endoscopy were offered for further evaluation and management. PAST MEDICAL HISTORY: Please see list. PAST SURGICAL HISTORY: Please see list. MEDICATIONS: Please see list. ALLERGIES: Please see list. SOCIAL HISTORY: No illicit drug use FAMILY HISTORY: No reports of Crohn disease or ulcerative colitis. REVIEW OF ORGAN SYSTEMS: CONSTITUTIONAL: No reports of fevers or chills. GI: Denies any blood in stools or constipation. PHYSICAL EXAM: VITAL SIGNS: Stable GENERAL: Well-developed pleasant in no acute distress. HEENT: No scleral icterus. Extraocular movements grossly intact. Moist buccal mucosa. NECK: Supple without lymphadenopathy. CHEST: Unlabored respirations. Equal bilateral excursions. CARDIOVASCULAR: Regular rate and rhythm. Distal 2+ pulses. ABDOMEN: Soft, nondistended. MUSCULOSKELETAL: No clubbing, cyanosis, or edema. ASSESSMENT: 1. Gastroesophageal reflux disease 2. Colon screen. PLAN: 1. Recommend proceeding with an upper and lower endoscopy Past Medical History Past Medical History: Diabetes Mellitus, GERD/Reflux, Hypertension, Sleep Apnea/CPAP/BIPAP Additional Past Medical History / Comment(s): NO MEDS FOR DIABETES . NO CPAP USED History of Any Multi-Drug Resistant Organisms: None Reported Past Surgical History: Bariatric Surgery, Section, Cholecystectomy, Hysterectomy, Orthopedic Surgery, Tonsillectomy Additional Past Surgical History / Comment(s): right elbow lateral epicondylitis; right shoulder surgery. Gastric Sleeve gastrectomy 05-18-2020. BILATERAL CARPAL TUNNEL Past Anesthesia/Blood Transfusion Reactions: Postoperative Nausea & Vomiting (PONV) Additional Past Anesthesia/Blood Transfusion Reaction / Comment(s): c/o headache with Anesthesia Past Psychological History: Anxiety, Depression, PTSD Smoking Status: Never smoker Past Alcohol Use History: None Reported, Rare Additional Past Alcohol Use History / Comment(s): She denies any medical marijuana. Past Drug Use History: Marijuana Additional Drug Use History / Comment(s): occ use - Past Family History Mother Family Medical History: Congestive Heart Failure (CHF), Coronary Artery Disease (CAD), Hypertension, Rheumatoid Arthritis (RA) Additional Family Medical History / Comment(s): Mother is alive at age 70 with a (family history of diabetes), coronary artery disease status post stent placement, polymyalgia. Father Family Medical History: No Reported History Additional Family Medical History / Comment(s): Father is alive at age 71 with no major medical problems. Brother(s) Family Medical History: No Reported History Additional Family Medical History / Comment(s): Patient has a brother age 48 and a second brother age 40 with no major medical problems. Patient has 1 sister with no major medical problems. She has one son and one daughter with no major medical problems. Medications and Allergies Home Medications Medication Instructions Recorded Confirmed Type Brexpiprazole [Rexulti] 3 mg PO QA 01/22/20 05/11/23 History traZODone HCL [Desyrel] 100 mg PO DAILY@199901/22/20 05/11/23 History Citalopram Hydrobromide [CeleXA] 40 mg PO QA 05/11/23 05/11/23 History Allergies Allergy/AdvReac Type Severity Reaction Status Date / Time cephalexin monohydrate Allergy Rapid Verified 02/03/21 15:49 [From Keflex] Heart Rate sulfamethoxazole Allergy Rapid Verified 02/03/21 15:49 [From Bactrim] Heart Rate trimethoprim [From Bactrim] Allergy Rapid Verified 02/03/21 15:49 Heart Rate latex AdvReac Rash/Hives Verified 02/03/21 15:49 some tapes AdvReac Rash/Hives Uncoded 02/03/21 15:49 Surgical - Exam Vital Signs Temp Pulse Resp BP Pulse Ox 97 F L 73 20 140/63 95 05/15/23 07:15 05/15/23 07:15 05/15/23 07:15 05/15/23 07:15 05/15/23 07:15 Results - Labs Abnormal Lab Results - Last 24 Hours (Table) 05/15/23 Range/Units 07:15 POC Glucose (mg/dL) 167 H (70-110) mg/dL
--- NOTE | 2023-05-15 07:46 | P.PCN ---
Date of Procedure: 05/15/23 Description of Procedure: PREOPERATIVE DIAGNOSIS: Gastroesophageal reflux disease. Epigastric abdominal pain. Dysphagia Status post sleeve gastrectomy. POSTOPERATIVE DIAGNOSIS: Gastroesophageal reflux disease with erosive esophagitis Erosive esophagitis, chronic. Acute gastric ulcer or bleeding Chronic superficial gastritis with bleeding Status post sleeve gastrectomy. OPERATION: Esophagogastroduodenoscopy with cold forceps biopsies along the antrum, esophagus, duodenum SURGEON: Jaja Ga MD ANESTHESIA: MAC. INDICATIONS: The patient is a 52-year-old female who presents with dysphagia, epigastric abdominal pain and a history of sleeve gastrectomy with abdominal pain. She is over 2 years out from her bariatric procedure. Benefits and risks of the procedure were described. Informed consent was obtained. DESCRIPTION: The patient was brought into the endoscopy suite and laid in the left lateral decubitus position. An Olympus gastroscope was passed along the posterior oropharynx down to the distal esophagus where the squamocolumnar junction was at 34 centimeters from the incisors remarkable for chronic erosive esophagitis, LA grade A without ulceration. The stomach was entered where she had a 6-cm hiatal hernia with a diaphragmatic hiatus found at 34 cm. and the sleeve gastrectomy reservoir was within normal limits at all on retroflexion. Acute gastritis with bleeding including gastric ulcers with bleeding was found along the antrum with cold biopsies obtained. The first through third portion of the duodenum was examined and biopsies obtained. The scope again had easily retroflexed along the antrum. The stomach was desufflated. The patient tolerated the procedure well. FINDINGS: No acute ulceration found along her sleeve. No corkscrewing sleeve gastrectomy. Squamocolumnar junction at 34 cm from the incisors. Diaphragmatic hiatus at 34 cm. Sleeve gastrectomy reservoir within normal limits without easy retroflexion LA grade B erosive esophagitis. Biopsies obtained 5 mL obtained duodenum. Acute gastritis with bleeding acute gastric ulcer, 3 mm at the antrum with bleeding, biopsies obtained RECOMMENDATIONS: Upper endoscopy as needed. Recommend omeprazole and Carafate for acute gastric ulcer with bleeding
--- NOTE | 2023-05-15 08:09 | P.PCN ---
Date of Procedure: 05/15/23 Description of Procedure: PREOPERATIVE DIAGNOSIS: Abnormal stool function Change in bowel habits POSTOPERATIVE DIAGNOSIS: Microscopic colitis OPERATION: Colonoscopy to the cecum, ileocecal valve and appendiceal orifice. Colonoscopy with random cold forceps biopsies for microscopic colitis SURGEON: Jaja Ga MD. ANESTHESIA: MAC. INDICATIONS: The patient is a 52-year-old female who presents with altered stools including change in bowel habits. Benefits and risks were described and informed consent was obtained. DESCRIPTION OF PROCEDURE: The patient had undergone Sutab. The patient had been brought into the operating room and laid in the left lateral decubitus position. After adequate intravenous sedation, the rectum was examined with 2% lidocaine jelly. Eexternal hemorrhoids were encountered. The rectal tone was within normal limits. No lesions were palpated in the rectal vault. An Olympus colonoscope was advanced until the cecum, ileocecal valve and appendiceal orifice were clearly viewed. The prep was fair. No scattered diverticulosis was encountered. No colonic polyps were found. Cold forceps biopsies randomly were obtained for microscopic colitis. Retroflexion of the scope demonstrated grade 2 internal hemorrhoids without active bleeding or inflammation. The colon was desufflated. The patient had tolerated the procedure well. Withdrawal time was over 6 minutes. FINDINGS: Aronchick preparation quality scale 2+(1-5) Internal hemorrhoids, grade 2 External prolapsed hemorrhoids, grade 3 No arteriovenous malformations. No large adenomatous polyps obstructed due to poor prep Cold forceps biopsies obtained for microscopic colitis RECOMMENDATIONS: Repeat colonoscopy 5 years, 2028 Plan - Discharge Summary Discharge Rx Participant: No New Discharge Prescriptions: New Sucralfate [Carafate] 1 gm PO BID #30 tablet Omeprazole [PriLOSEC] 40 mg PO DAILY #14 cap Continue traZODone HCL [Desyrel] 100 mg PO DAILY@1999 Brexpiprazole [Rexulti] 3 mg PO QAM Citalopram Hydrobromide [CeleXA] 40 mg PO QAM Discharge Medication List Brexpiprazole [Rexulti] 3 mg PO QAM 01/22/20 [History] traZODone HCL [Desyrel] 100 mg PO DAILY@199901/22/20 [History] Citalopram Hydrobromide [CeleXA] 40 mg PO QAM 05/11/23 [History] Omeprazole [PriLOSEC] 40 mg PO DAILY #14 cap 05/15/23 [Rx] Sucralfate [Carafate] 1 gm PO BID #30 tablet 05/15/23 [Rx] Follow up Appointment(s)/Referral(s): Jaja Ga MD [STAFF PHYSICIAN] - 05/31/23 4:00 pm Patient Instructions/Handouts: Diet for Stomach Ulcers and Gastritis (ED) Activity/Diet/Wound Care/Special Instructions: Repeat colonoscopy 5 years, 2028 Discharge Disposition: HOME SELF-CARE
[2023-05-15 08:36] VITALS: BP 120/74; PULSE 75; RESP 16
== END 2023-05-15 08:58 | disposition home or self-care (01) ==
LOC: ORWHC2ENDO 06:33
PROVIDERS: ATTEND Surgery Plastic and Reconstructive Surgery
DX: K29.30 Chronic superficial gastritis without bleeding (principal); K21.00 Gastro-esophageal reflux disease with esophagitis, without bleeding; R19.4 Change in bowel habit; R19.5 Other fecal abnormalities; K25.0 Acute gastric ulcer with hemorrhage; K64.1 Second degree hemorrhoids; K64.2 Third degree hemorrhoids; K52.9 Noninfective gastroenteritis and colitis, unspecified; E11.9 Type 2 diabetes mellitus without complications; I10 Essential (primary) hypertension; G47.33 Obstructive sleep apnea (adult) (pediatric); F41.9 Anxiety disorder, unspecified; F32.A Depression, unspecified; F43.10 Post-traumatic stress disorder, unspecified; F12.90 Cannabis use, unspecified, uncomplicated; Z82.49 Family history of ischemic heart disease and other diseases of the circulatory system; Z83.3 Family history of diabetes mellitus; Z88.1 Allergy status to other antibiotic agents; Z88.2 Allergy status to sulfonamides; Z91.040 Latex allergy status; Z91.048 Other nonmedicinal substance allergy status; Z79.899 Other long term (current) drug therapy; Z90.710 Acquired absence of both cervix and uterus; Z98.84 Bariatric surgery status; Z90.49 Acquired absence of other specified parts of digestive tract; Z98.890 Other specified postprocedural states
CPT/HCPCS: 88305; 45380; 43239; J2250; J2405; J2001; J3010; J2704